=== PATIENT | male | born 1970 | race Caucasian/White ===

== ENCOUNTER 2021-12-08 20:05 | Inpatient (IN) | payer OTHER ==
[~2021-12-08] VITALS: Ht 188 cm; Wt 125.1 kg
[2021-12-08 20:51] LABS: GLUCOSE,POINT OF CARE 174 MG/DL (70-110)
[2021-12-08 21:09] LABS: BASOPHILS % (AUTO) 2.5 % (0.0-2.0); EOSINOPHILS % (AUTO) 5.7 % (1.0-6.0); HEMATOCRIT 28.1 % (41-53); HEMOGLOBIN 9.5 g/dL (13.5-17.5); LYMPHOCYTES # (AUTO) 1.2 K/uL (1.0-4.8); LYMPHOCYTES % (AUTO) 13.1 % (22.0-44.0); MEAN CORPUSCULAR HEMOGLOBIN 27.9 pg (26.0-34.0); MEAN CORPUSCULAR HGB CONC 33.7 G/dL (31.0-37.0); MEAN CORPUSCULAR VOLUME 83 fL (80-100); MONOCYTES # (AUTO) 0.7 K/uL (0.1-1.0); NEUTROPHILS # (AUTO) 6.7 K/uL (1.8-7.7); NEUTROPHILS % (AUTO) 71.7 % (40.0-70.0); PLATELET COUNT (AUTO) 389 K/uL (150-450)
[2021-12-08] MEDS ORDERED: DEXTROSE 50%-WATER 25 GM/50 ML SYRINGE IVP PRN (21:15)
[2021-12-08] MEDS ORDERED: ONDANSETRON HCL 4 MG/2 ML VIAL IVP PRN (21:15)
[2021-12-08 21:21] LABS: INR 1.1 (0.9-1.1); PROTHROMBIN TIME 11.2 SEC (9.4-11.6)
[2021-12-08 21:25] LABS: LACTIC ACID 1.9 mmol/L (0.4-2.0)
[2021-12-08 21:32] LABS: CALCIUM, TOTAL 8.9 mg/dL (8.8-10.5); CREATININE 1.46 mg/dL (0.60-1.30); POTASSIUM 4.8 mmol/L (3.5-5.1)
[2021-12-08] MEDS: GABAPENTIN 100 MG CAPSULE PO SCH (21:34)
[2021-12-08] MEDS: MORPHINE SULFATE 4 MG/ML SYRINGE IVP PRN (21:35)
[2021-12-08 21:38] LABS: ALBUMIN 2.7 g/dL (3.4-5.0); BILIRUBIN,TOTAL 0.3 mg/dL (0.1-1.0); TOTAL PROTEIN, SERUM 7.5 g/dL (6.4-8.2)
[2021-12-08] MEDS: INSULIN LISPRO 100 UNITS/ML SQ PRN (21:42)
[2021-12-08 21:43] LABS: COVID AG,FIA SOURCE NASOPHARYNGEAL
[2021-12-08 22:45] VITALS: BP 163/81
[2021-12-09] MEDS: ACETAMINOPHEN 325 MG TABLET PO PRN ×2 (00:10→21:01)
[2021-12-09] MEDS: HEPARIN SODIUM,PORCINE 5,000 UNITS/ML VIAL SQ SCH ×4 (01:23→23:24)
[2021-12-09] MEDS: MORPHINE SULFATE 4 MG/ML SYRINGE IVP PRN ×5 (01:24→21:37)
[2021-12-09] MEDS: LORazepam 2 MG TABLET PO PRN ×3 (03:27→23:28)
[2021-12-09] MEDS ORDERED: INSULIN GLARGINE,HUM.REC.ANLOG 100 UNITS/ML SQ ONE (04:45)
[2021-12-09] MEDS ORDERED: SENN8.6T20 PO (04:57)
[2021-12-09] MEDS ORDERED: ASCO500 PO (04:57)
[2021-12-09] MEDS ORDERED: [UNRECOGNIZED DRUG - CODE] IV (04:57)
[2021-12-09] MEDS ORDERED: CLON-592 PO (04:57)
[2021-12-09] MEDS ORDERED: OXYC10TA92 PO (04:57)
[2021-12-09] MEDS ORDERED: ALBU8.5H8 IH (04:57)
[2021-12-09] MEDS ORDERED: GLIP5 PO (04:57)
[2021-12-09] MEDS ORDERED: FLUO20CA36 PO (04:57)
[2021-12-09] MEDS ORDERED: METO25 PO (04:57)
[2021-12-09] MEDS ORDERED: LURA80TA2 PO (04:57)
[2021-12-09] MEDS ORDERED: METO5TAB95 PO (04:57)
[2021-12-09] MEDS ORDERED: SITA100 PO (04:57)
[2021-12-09] MEDS ORDERED: NYST15PO4 TP (04:57)
[2021-12-09] MEDS ORDERED: OXYC10TA59 PO (04:57)
[2021-12-09] MEDS ORDERED: TAMS-13 PO (04:57)
[2021-12-09] MEDS ORDERED: ONDA-104 PO (04:57)
[2021-12-09] MEDS ORDERED: TRAZ150T80 PO (04:57)
[2021-12-09] MEDS ORDERED: ZINC113C10 TP (04:57)
[2021-12-09] MEDS ORDERED: ATOR20TA86 PO (04:57)
[2021-12-09 05:02] LABS: APPEARANCE,URINE CLEAR (CLEAR); BILIRUBIN,URINE NEGATIVE (NEGATIVE); GLUCOSE, URINE (UA) 500 mg/dL (NEGATIVE); KETONES,URINE NEGATIVE (NEGATIVE); LEUKOCYTE ESTERASE ,URINE NEGATIVE (NEGATIVE); NITRATE,URINE NEGATIVE (NEGATIVE); OCCULT BLOOD,URINE NEGATIVE (NEGATIVE); PH,URINE 6.5 (5.0-8.0); PROTEIN,URINE TRACE (NEGATIVE); UROBILINOGEN,URINE 0.2 mg/dL (<=1.0)
[2021-12-09 05:23] LABS: BACTERIA,URINE None Seen /HPF (None Seen); RBC,URINE None Seen /HPF (0-2); WBC,URINE None Seen /HPF (0-5)
[2021-12-09] MEDS: METOPROLOL TARTRATE 25 MG TABLET PO SCH ×3 (05:30→21:02)
[2021-12-09 05:34] VITALS: BP 162/74
[2021-12-09 06:01] LABS: GLUCOMETER DEV NAME(LOC) 5S.2B; GLUCOSE,POINT OF CARE 150 MG/DL (70-110)
[2021-12-09] MEDS: RINGERS SOLUTION,LACTATED 1,000 ML IV SCH ×2 (06:24→17:40)
[2021-12-09] MEDS: PIPERACILLIN/TAZO 3.375 GM/D5W 50 ML IV SCH ×4 (06:24→23:24)
[2021-12-09 07:55] LABS: CALCIUM, TOTAL 8.9 mg/dL (8.8-10.5); CREATININE 1.28 mg/dL (0.60-1.30)
[2021-12-09 08:00] LABS: ALBUMIN 2.5 g/dL (3.4-5.0); BILIRUBIN,DIRECT 0.2 mg/dL (0.00-0.20); BILIRUBIN,TOTAL 0.3 mg/dL (0.1-1.0)
[2021-12-09 09:00] VITALS: BP 125/68
[2021-12-09] MEDS ORDERED: METOPROLOL TARTRATE 25 MG TABLET PO SCH (09:00)
[2021-12-09] MEDS: ZINC OXIDE 16% PASTE 57 GM TUBE TP SCH ×3 (09:00→21:12)
[2021-12-09 09:42] LABS: BASOPHILS % (AUTO) 2.6 % (0.0-2.0); EOSINOPHILS % (AUTO) 10.4 % (1.0-6.0); HEMATOCRIT 29.2 % (41-53); HEMOGLOBIN 9.5 g/dL (13.5-17.5); LYMPHOCYTES % (AUTO) 25.6 % (22.0-44.0); MEAN CORPUSCULAR HEMOGLOBIN 27.5 pg (26.0-34.0); MEAN CORPUSCULAR HGB CONC 32.7 G/dL (31.0-37.0); MEAN CORPUSCULAR VOLUME 84 fL (80-100); MONOCYTES # (AUTO) 0.5 K/uL (0.1-1.0); MONOCYTES % (AUTO) 6.5 % (2.0-9.0); NEUTROPHILS # (AUTO) 4.3 K/uL (1.8-7.7); NEUTROPHILS % (AUTO) 54.9 % (40.0-70.0); PLATELET COUNT (AUTO) 360 K/uL (150-450); RED BLOOD CELL COUNT(AUTO) 3.46 MIL/uL (4.50-5.90); RED CELL DISTRIBUTION WIDTH 16.4 % (11.5-14.5)
[2021-12-09 09:57] LABS: % IRON SATURATION 21.1 % (30-44)
[2021-12-09] MEDS: TAMSULOSIN HCL 0.4 MG CAPSULE PO SCH (10:54)
[2021-12-09] MEDS: GABAPENTIN 100 MG CAPSULE PO SCH ×3 (10:54→21:01)
[2021-12-09] MEDS: ATORVASTATIN CALCIUM 20 MG TABLET PO SCH (10:55)
[2021-12-09] MEDS: ASCORBIC ACID 500 MG TABLET PO SCH (10:56)
[2021-12-09] MEDS: 1: MAGNESIUM SULFATE 2 GM, MVI, ADULT NO.1 WITH VIT K 10 ML, THIAMINE 100 MG, FOLIC ACID IV SCH ×15 (10:58→23:24)
[2021-12-09] MEDS: NYSTATIN 15 GM POWDER BOTTLE TP SCH ×2 (12:14→21:12)
[2021-12-09] MEDS: SENNA 187 MG TABLET PO SCH ×2 (12:14→21:00)
[2021-12-09] MEDS: FLUoxetine HCL 20 MG CAPSULE PO SCH (12:15)
[2021-12-09 12:21] VITALS: BP 132/65
[2021-12-09 16:00] VITALS: BP 159/89
[2021-12-09] MEDS ORDERED: SODIUM CHLORIDE 0.9% 1,000 ML ONE (17:43)
[2021-12-09 18:41] LABS: GLUCOMETER DEV NAME(LOC) 5S.2B; GLUCOSE,POINT OF CARE 167 MG/DL (70-110)
[2021-12-09 18:41] LABS: GLUCOMETER DEV NAME(LOC) 5S.2B; GLUCOSE,POINT OF CARE 233 MG/DL (70-110)
[2021-12-09 20:35] VITALS: BP 141/83
[2021-12-09] MEDS: INSULIN LISPRO 100 UNITS/ML SQ PRN (21:10)
[2021-12-09] MEDS: INSULIN GLARGINE,HUM.REC.ANLOG 100 UNITS/ML SQ SCH (21:11)
[2021-12-09 21:21] LABS: GLUCOMETER DEV NAME(LOC) 5S.2B; GLUCOSE,POINT OF CARE 189 MG/DL (70-110)
[2021-12-09 23:46] VITALS: BP 129/66
[2021-12-10] VITALS (8 sets, daily range): BP systolic 121–158; BP diastolic 67–83
[2021-12-10] MEDS: MORPHINE SULFATE 4 MG/ML SYRINGE IVP PRN ×4 (01:30→15:54)
[2021-12-10] MEDS ORDERED: LORazepam 2 MG TABLET PO PRN ×2 (03:45→07:00)
[2021-12-10] MEDS: RINGERS SOLUTION,LACTATED 1,000 ML IV SCH ×2 (03:53→09:57)
[2021-12-10] MEDS: PIPERACILLIN/TAZO 3.375 GM/D5W 50 ML IV SCH ×4 (05:37→21:37)
[2021-12-10] MEDS: INSULIN LISPRO 100 UNITS/ML SQ PRN ×3 (06:05→21:24)
[2021-12-10 06:27] LABS: GLUCOMETER DEV NAME(LOC) 5N.3; GLUCOSE,POINT OF CARE 190 MG/DL (70-110)
[2021-12-10] MEDS: ATORVASTATIN CALCIUM 20 MG TABLET PO SCH (08:15)
[2021-12-10] MEDS: METOPROLOL TARTRATE 25 MG TABLET PO SCH ×2 (08:15→21:21)
[2021-12-10] MEDS: SENNA 187 MG TABLET PO SCH ×2 (08:15→21:00)
[2021-12-10] MEDS: FLUoxetine HCL 20 MG CAPSULE PO SCH (08:15)
[2021-12-10] MEDS: GABAPENTIN 100 MG CAPSULE PO SCH ×3 (08:15→21:21)
[2021-12-10] MEDS: ASCORBIC ACID 500 MG TABLET PO SCH (08:15)
[2021-12-10] MEDS: TAMSULOSIN HCL 0.4 MG CAPSULE PO SCH (08:15)
[2021-12-10] MEDS: LORazepam 2 MG TABLET PO SCH ×2 (08:16→15:54)
[2021-12-10] MEDS: HEPARIN SODIUM,PORCINE 5,000 UNITS/ML VIAL SQ SCH ×2 (08:20→18:48)
[2021-12-10] MEDS: ZINC OXIDE 16% PASTE 57 GM TUBE TP SCH ×3 (09:50→21:26)
[2021-12-10] MEDS: NYSTATIN 15 GM POWDER BOTTLE TP SCH ×2 (09:50→18:47)
[2021-12-10 12:56] LABS: GLUCOMETER DEV NAME(LOC) 5S.1B; GLUCOSE,POINT OF CARE 183 MG/DL (70-110)
[2021-12-10] MEDS ORDERED: ALBUTEROL SULFATE HFA 90 MCG/PUFF 8 GM INHALER IH PRN (16:30)
[2021-12-10] MEDS ORDERED: OXYC20TA58 PO (16:30)
[2021-12-10] MEDS ORDERED: CeFAZolin 1 GM/DEXTROSE 50 ML BAG IV SCH (17:00)
[2021-12-10] MEDS: LURASIDONE HCL 80 MG TABLET PO SCH (18:47)
[2021-12-10] MEDS: CeFAZolin 2 GM/DEXTROSE 50 ML IV SCH (18:47)
[2021-12-10] MEDS: GlipiZIDE 5 MG TABLET PO SCH (18:48)
[2021-12-10] MEDS: OxyCODONE HCL 10 MG IR TABLET PO PRN (18:57)
[2021-12-10] MEDS: OxyCODONE HCL 10 MG ER TABLET PO SCH (21:22)
[2021-12-10] MEDS: ClonazePAM 0.5 MG TABLET PO PRN (21:22)
[2021-12-10] MEDS: INSULIN GLARGINE,HUM.REC.ANLOG 100 UNITS/ML SQ SCH (21:24)
[2021-12-10 21:56] LABS: GLUCOMETER DEV NAME(LOC) 5S.2B; GLUCOSE,POINT OF CARE 148 MG/DL (70-110)
[2021-12-11] VITALS (7 sets, daily range): BP systolic 108–146; BP diastolic 47–90
[2021-12-11] MEDS: HEPARIN SODIUM,PORCINE 5,000 UNITS/ML VIAL SQ SCH ×3 (01:49→18:05)
[2021-12-11] MEDS: OxyCODONE HCL 10 MG IR TABLET PO PRN ×4 (01:51→20:20)
[2021-12-11] MEDS: CeFAZolin 2 GM/DEXTROSE 50 ML IV SCH ×3 (01:52→18:04)
[2021-12-11] MEDS: ACETAMINOPHEN 325 MG TABLET PO PRN (03:17)
[2021-12-11] MEDS: PIPERACILLIN/TAZO 3.375 GM/D5W 50 ML IV SCH (06:00)
[2021-12-11] MEDS: INSULIN LISPRO 100 UNITS/ML SQ PRN ×2 (06:51→22:03)
[2021-12-11 07:10] LABS: GLUCOMETER DEV NAME(LOC) 5S.1B; GLUCOSE,POINT OF CARE 181 MG/DL (70-110)
[2021-12-11] MEDS: FLUoxetine HCL 20 MG CAPSULE PO SCH (08:00)
[2021-12-11] MEDS: SitaGLIPtin PHOSPHATE 100 MG TABLET PO SCH (08:00)
[2021-12-11] MEDS: TAMSULOSIN HCL 0.4 MG CAPSULE PO SCH (08:00)
[2021-12-11] MEDS: SENNA 187 MG TABLET PO SCH ×2 (08:01→20:21)
[2021-12-11] MEDS: LURASIDONE HCL 80 MG TABLET PO SCH ×2 (08:01→18:04)
[2021-12-11] MEDS: ASCORBIC ACID 500 MG TABLET PO SCH (08:01)
[2021-12-11] MEDS: ATORVASTATIN CALCIUM 20 MG TABLET PO SCH (08:01)
[2021-12-11] MEDS: OxyCODONE HCL 10 MG ER TABLET PO SCH ×2 (08:01→22:19)
[2021-12-11] MEDS: GlipiZIDE 5 MG TABLET PO SCH ×3 (08:01→18:04)
[2021-12-11] MEDS: GABAPENTIN 100 MG CAPSULE PO SCH ×3 (08:01→20:21)
[2021-12-11] MEDS: METOPROLOL TARTRATE 25 MG TABLET PO SCH ×2 (08:01→20:21)
[2021-12-11] MEDS: ZINC OXIDE 16% PASTE 57 GM TUBE TP SCH ×3 (08:02→21:00)
[2021-12-11] MEDS: NYSTATIN 15 GM POWDER BOTTLE TP SCH ×2 (08:02→22:04)
[2021-12-11 08:49] LABS: BASOPHILS % (AUTO) 1.2 % (0.0-2.0); EOSINOPHILS % (AUTO) 9.8 % (1.0-6.0); HEMATOCRIT 29.2 % (41-53); LYMPHOCYTES # (AUTO) 1.7 K/uL (1.0-4.8); LYMPHOCYTES % (AUTO) 19.9 % (22.0-44.0); MEAN CORPUSCULAR HEMOGLOBIN 28.3 pg (26.0-34.0); MEAN CORPUSCULAR HGB CONC 34.2 G/dL (31.0-37.0); MEAN CORPUSCULAR VOLUME 83 fL (80-100); MONOCYTES # (AUTO) 0.5 K/uL (0.1-1.0); MONOCYTES % (AUTO) 5.4 % (2.0-9.0); NEUTROPHILS # (AUTO) 5.4 K/uL (1.8-7.7); NEUTROPHILS % (AUTO) 63.7 % (40.0-70.0); PLATELET COUNT (AUTO) 283 K/uL (150-450); RED BLOOD CELL COUNT(AUTO) 3.53 MIL/uL (4.50-5.90); RED CELL DISTRIBUTION WIDTH 15.4 % (11.5-14.5)
[2021-12-11 09:05] LABS: ALBUMIN 2.7 g/dL (3.4-5.0); BILIRUBIN,TOTAL 0.2 mg/dL (0.1-1.0); CREATININE 1.45 mg/dL (0.60-1.30); POTASSIUM 4.1 mmol/L (3.5-5.1); TOTAL PROTEIN, SERUM 7.5 g/dL (6.4-8.2)
[2021-12-11] MEDS: ClonazePAM 0.5 MG TABLET PO PRN ×3 (09:14→20:46)
[2021-12-11 14:56] LABS: GLUCOMETER DEV NAME(LOC) 5S.1B; GLUCOSE,POINT OF CARE 154 MG/DL (70-110)
[2021-12-11 17:51] LABS: GLUCOMETER DEV NAME(LOC) 5S.1B; GLUCOSE,POINT OF CARE 129 MG/DL (70-110)
[2021-12-11] MEDS: TraZODone HCL 150 MG TABLET PO PRN (21:31)
[2021-12-11] MEDS: INSULIN GLARGINE,HUM.REC.ANLOG 100 UNITS/ML SQ SCH (22:03)
[2021-12-12] MEDS: HEPARIN SODIUM,PORCINE 5,000 UNITS/ML VIAL SQ SCH ×4 (00:31→23:17)
[2021-12-12 01:00] VITALS: BP 140/78
[2021-12-12] MEDS: OxyCODONE HCL 10 MG IR TABLET PO PRN ×4 (02:18→23:18)
[2021-12-12] MEDS: CeFAZolin 2 GM/DEXTROSE 50 ML IV SCH ×3 (02:19→19:57)
[2021-12-12 02:21] LABS: GLUCOMETER DEV NAME(LOC) 5S.1B; GLUCOSE,POINT OF CARE 175 MG/DL (70-110)
[2021-12-12 04:40] VITALS: BP 97/62
[2021-12-12] MEDS: ClonazePAM 0.5 MG TABLET PO PRN ×3 (04:46→23:18)
[2021-12-12] MEDS: INSULIN LISPRO 100 UNITS/ML SQ PRN ×3 (06:09→18:01)
[2021-12-12 06:22] LABS: GLUCOMETER DEV NAME(LOC) 5S.2B; GLUCOSE,POINT OF CARE 184 MG/DL (70-110)
[2021-12-12] MEDS ORDERED: LORazepam 1 MG TABLET PO PRN (07:00)
[2021-12-12] MEDS: ATORVASTATIN CALCIUM 20 MG TABLET PO SCH (08:09)
[2021-12-12] MEDS: SitaGLIPtin PHOSPHATE 100 MG TABLET PO SCH (08:13)
[2021-12-12] MEDS: GlipiZIDE 5 MG TABLET PO SCH ×3 (08:13→16:36)
[2021-12-12] MEDS: TAMSULOSIN HCL 0.4 MG CAPSULE PO SCH (08:13)
[2021-12-12] MEDS: ASCORBIC ACID 500 MG TABLET PO SCH (08:14)
[2021-12-12] MEDS: SENNA 187 MG TABLET PO SCH ×2 (08:14→21:24)
[2021-12-12] MEDS: FLUoxetine HCL 20 MG CAPSULE PO SCH (08:14)
[2021-12-12] MEDS: LURASIDONE HCL 80 MG TABLET PO SCH ×2 (08:14→18:00)
[2021-12-12] MEDS: GABAPENTIN 100 MG CAPSULE PO SCH ×3 (08:14→21:22)
[2021-12-12] MEDS: METOPROLOL TARTRATE 25 MG TABLET PO SCH ×2 (08:14→21:21)
[2021-12-12] MEDS: ZINC OXIDE 16% PASTE 57 GM TUBE TP SCH ×3 (08:17→21:00)
[2021-12-12] MEDS: NYSTATIN 15 GM POWDER BOTTLE TP SCH ×2 (08:17→21:51)
[2021-12-12] MEDS: ChlordiazePOXIDE HCL 25 MG CAPSULE PO SCH ×5 (08:18→23:17)
[2021-12-12] MEDS ORDERED: LORazepam 1 MG TABLET PO SCH (09:00)
[2021-12-12] MEDS: OxyCODONE HCL 10 MG ER TABLET PO SCH ×2 (10:12→21:22)
[2021-12-12 10:28] LABS: BASOPHILS % (AUTO) 1.5 % (0.0-2.0); EOSINOPHILS % (AUTO) 9.3 % (1.0-6.0); HEMOGLOBIN 9.5 g/dL (13.5-17.5); LYMPHOCYTES % (AUTO) 23.9 % (22.0-44.0); MEAN CORPUSCULAR HEMOGLOBIN 28.3 pg (26.0-34.0); MEAN CORPUSCULAR HGB CONC 33.9 G/dL (31.0-37.0); MEAN CORPUSCULAR VOLUME 84 fL (80-100); MONOCYTES # (AUTO) 0.5 K/uL (0.1-1.0); MONOCYTES % (AUTO) 6.1 % (2.0-9.0); NEUTROPHILS # (AUTO) 4.9 K/uL (1.8-7.7); NEUTROPHILS % (AUTO) 59.2 % (40.0-70.0); PLATELET COUNT (AUTO) 262 K/uL (150-450); RED BLOOD CELL COUNT(AUTO) 3.35 MIL/uL (4.50-5.90); RED CELL DISTRIBUTION WIDTH 16.3 % (11.5-14.5)
[2021-12-12 10:53] LABS: ALBUMIN 2.6 g/dL (3.4-5.0); BILIRUBIN,TOTAL 0.1 mg/dL (0.1-1.0); CALCIUM, TOTAL 8.9 mg/dL (8.8-10.5); CREATININE 1.89 mg/dL (0.60-1.30); TOTAL PROTEIN, SERUM 7.2 g/dL (6.4-8.2)
[2021-12-12 10:54] VITALS: BP 120/80
[2021-12-12 14:29] VITALS: BP 103/65
[2021-12-12 15:06] LABS: GLUCOMETER DEV NAME(LOC) 5S.1B; GLUCOSE,POINT OF CARE 146 MG/DL (70-110)
[2021-12-12 18:04] VITALS: BP 114/68
[2021-12-12 18:12] LABS: GLUCOMETER DEV NAME(LOC) 5S.1B; GLUCOSE,POINT OF CARE 190 MG/DL (70-110)
[2021-12-12 19:30] VITALS: BP 117/65
[2021-12-12] MEDS: INSULIN GLARGINE,HUM.REC.ANLOG 100 UNITS/ML SQ SCH (21:32)
[2021-12-12 21:46] LABS: GLUCOMETER DEV NAME(LOC) 4E.2; GLUCOSE,POINT OF CARE 199 MG/DL (70-110)
[2021-12-13] MEDS: CeFAZolin 2 GM/DEXTROSE 50 ML IV SCH ×3 (01:13→18:04)
[2021-12-13] MEDS: ChlordiazePOXIDE HCL 25 MG CAPSULE PO SCH ×5 (03:58→22:10)
[2021-12-13 05:00] VITALS: BP 122/75
[2021-12-13] MEDS: INSULIN LISPRO 100 UNITS/ML SQ PRN ×4 (06:44→22:11)
[2021-12-13] MEDS ORDERED: LORazepam 1 MG TABLET PO PRN (07:00)
[2021-12-13 07:20] LABS: BASOPHILS % (AUTO) 1.1 % (0.0-2.0); EOSINOPHILS % (AUTO) 9.1 % (1.0-6.0); HEMATOCRIT 27.9 % (41-53); HEMOGLOBIN 9.4 g/dL (13.5-17.5); LYMPHOCYTES # (AUTO) 1.7 K/uL (1.0-4.8); MEAN CORPUSCULAR HEMOGLOBIN 28.3 pg (26.0-34.0); MEAN CORPUSCULAR HGB CONC 33.7 G/dL (31.0-37.0); MEAN CORPUSCULAR VOLUME 84 fL (80-100); MONOCYTES # (AUTO) 0.5 K/uL (0.1-1.0); MONOCYTES % (AUTO) 6.4 % (2.0-9.0); NEUTROPHILS # (AUTO) 4.4 K/uL (1.8-7.7); NEUTROPHILS % (AUTO) 60.4 % (40.0-70.0); PLATELET COUNT (AUTO) 234 K/uL (150-450); RED BLOOD CELL COUNT(AUTO) 3.31 MIL/uL (4.50-5.90); RED CELL DISTRIBUTION WIDTH 16.5 % (11.5-14.5)
[2021-12-13 07:50] LABS: ALBUMIN 2.7 g/dL (3.4-5.0); BILIRUBIN,TOTAL 0.1 mg/dL (0.1-1.0); CREATININE 1.95 mg/dL (0.60-1.30); POTASSIUM 3.8 mmol/L (3.5-5.1); TOTAL PROTEIN, SERUM 7.3 g/dL (6.4-8.2)
[2021-12-13] MEDS: GlipiZIDE 5 MG TABLET PO SCH ×3 (08:04→18:04)
[2021-12-13] MEDS: HEPARIN SODIUM,PORCINE 5,000 UNITS/ML VIAL SQ SCH ×2 (08:04→18:05)
[2021-12-13] MEDS: LURASIDONE HCL 80 MG TABLET PO SCH ×2 (08:04→18:04)
[2021-12-13 08:10] VITALS: BP 130/88
[2021-12-13] MEDS: FLUoxetine HCL 20 MG CAPSULE PO SCH (08:52)
[2021-12-13] MEDS: ATORVASTATIN CALCIUM 20 MG TABLET PO SCH (08:53)
[2021-12-13] MEDS: OxyCODONE HCL 10 MG ER TABLET PO SCH ×3 (08:53→22:10)
[2021-12-13] MEDS: SitaGLIPtin PHOSPHATE 100 MG TABLET PO SCH (08:53)
[2021-12-13] MEDS: GABAPENTIN 100 MG CAPSULE PO SCH ×3 (08:54→22:36)
[2021-12-13] MEDS: METOPROLOL TARTRATE 25 MG TABLET PO SCH ×2 (08:54→22:10)
[2021-12-13] MEDS: SENNA 187 MG TABLET PO SCH ×2 (08:55→22:09)
[2021-12-13] MEDS: TAMSULOSIN HCL 0.4 MG CAPSULE PO SCH (08:55)
[2021-12-13] MEDS: ASCORBIC ACID 500 MG TABLET PO SCH (08:55)
[2021-12-13] MEDS: NYSTATIN 15 GM POWDER BOTTLE TP SCH ×2 (09:06→22:12)
[2021-12-13] MEDS: ZINC OXIDE 16% PASTE 57 GM TUBE TP SCH ×3 (09:06→22:12)
[2021-12-13 11:26] LABS: GLUCOMETER DEV NAME(LOC) 6N.1; GLUCOSE,POINT OF CARE 163 MG/DL (70-110)
[2021-12-13] MEDS: OxyCODONE HCL 10 MG IR TABLET PO PRN ×2 (12:22→22:36)
[2021-12-13 15:56] VITALS: BP 120/75
[2021-12-13] MEDS ORDERED: SODIUM CHLORIDE 0.9% 250 ML IV ONE (18:11)
[2021-12-13 19:06] LABS: GLUCOMETER DEV NAME(LOC) 6N.2; GLUCOSE,POINT OF CARE 157 MG/DL (70-110)
[2021-12-13 19:40] LABS: GLUCOMETER DEV NAME(LOC) 6N.1; GLUCOSE,POINT OF CARE 173 MG/DL (70-110)
[2021-12-13 19:53] VITALS: BP 107/69
[2021-12-13] MEDS: INSULIN GLARGINE,HUM.REC.ANLOG 100 UNITS/ML SQ SCH (22:10)
[2021-12-13] MEDS: ClonazePAM 0.5 MG TABLET PO PRN (22:36)
[2021-12-13] MEDS: TraZODone HCL 150 MG TABLET PO PRN (22:38)
[2021-12-14] MEDS: ChlordiazePOXIDE HCL 25 MG CAPSULE PO SCH ×7 (00:51→23:36)
[2021-12-14] MEDS: HEPARIN SODIUM,PORCINE 5,000 UNITS/ML VIAL SQ SCH ×5 (00:51→23:40)
[2021-12-14] MEDS: CeFAZolin 2 GM/DEXTROSE 50 ML IV SCH ×3 (01:31→17:44)
[2021-12-14 01:51] LABS: GLUCOMETER DEV NAME(LOC) 4E.2; GLUCOSE,POINT OF CARE 204 MG/DL (70-110)
[2021-12-14 05:47] VITALS: BP 106/71
[2021-12-14 05:54] LABS: BASOPHILS % (AUTO) 1.1 % (0.0-2.0); EOSINOPHILS % (AUTO) 8.4 % (1.0-6.0); HEMATOCRIT 29.6 % (41-53); HEMOGLOBIN 9.8 g/dL (13.5-17.5); LYMPHOCYTES # (AUTO) 1.5 K/uL (1.0-4.8); LYMPHOCYTES % (AUTO) 22.9 % (22.0-44.0); MEAN CORPUSCULAR HEMOGLOBIN 28.2 pg (26.0-34.0); MEAN CORPUSCULAR VOLUME 85 fL (80-100); MONOCYTES # (AUTO) 0.5 K/uL (0.1-1.0); NEUTROPHILS % (AUTO) 59.6 % (40.0-70.0); PLATELET COUNT (AUTO) 227 K/uL (150-450); RED BLOOD CELL COUNT(AUTO) 3.47 MIL/uL (4.50-5.90); RED CELL DISTRIBUTION WIDTH 16.5 % (11.5-14.5)
[2021-12-14 06:09] LABS: ALBUMIN 2.8 g/dL (3.4-5.0); BILIRUBIN,TOTAL 0.1 mg/dL (0.1-1.0); CALCIUM, TOTAL 9.3 mg/dL (8.8-10.5); CREATININE 1.78 mg/dL (0.60-1.30); POTASSIUM 4.3 mmol/L (3.5-5.1); TOTAL PROTEIN, SERUM 7.6 g/dL (6.4-8.2)
[2021-12-14] MEDS: OxyCODONE HCL 10 MG IR TABLET PO PRN ×2 (07:34→16:21)
[2021-12-14] MEDS: GlipiZIDE 5 MG TABLET PO SCH ×3 (07:34→17:44)
[2021-12-14 07:44] VITALS: BP 124/69
[2021-12-14] MEDS: GABAPENTIN 100 MG CAPSULE PO SCH ×3 (09:03→20:38)
[2021-12-14] MEDS: METOPROLOL TARTRATE 25 MG TABLET PO SCH ×2 (09:03→20:38)
[2021-12-14] MEDS: ASCORBIC ACID 500 MG TABLET PO SCH (09:04)
[2021-12-14] MEDS: LURASIDONE HCL 80 MG TABLET PO SCH ×2 (09:04→17:44)
[2021-12-14] MEDS: SitaGLIPtin PHOSPHATE 100 MG TABLET PO SCH (09:04)
[2021-12-14] MEDS: ATORVASTATIN CALCIUM 20 MG TABLET PO SCH (09:04)
[2021-12-14] MEDS: SENNA 187 MG TABLET PO SCH ×2 (09:04→20:38)
[2021-12-14] MEDS: FLUoxetine HCL 20 MG CAPSULE PO SCH (09:04)
[2021-12-14] MEDS: OxyCODONE HCL 10 MG ER TABLET PO SCH ×2 (09:05→20:38)
[2021-12-14] MEDS: TAMSULOSIN HCL 0.4 MG CAPSULE PO SCH (09:05)
[2021-12-14] MEDS: NYSTATIN 15 GM POWDER BOTTLE TP SCH ×2 (09:07→20:40)
[2021-12-14] MEDS: ZINC OXIDE 16% PASTE 57 GM TUBE TP SCH ×3 (09:08→20:40)
[2021-12-14] MEDS: INSULIN LISPRO 100 UNITS/ML SQ PRN ×3 (12:01→20:40)
[2021-12-14 15:06] LABS: GLUCOMETER DEV NAME(LOC) 4E.2; GLUCOSE,POINT OF CARE 172 MG/DL (70-110)
[2021-12-14 16:15] VITALS: BP 119/52
[2021-12-14 19:36] LABS: GLUCOMETER DEV NAME(LOC) 6N.2; GLUCOSE,POINT OF CARE 260 MG/DL (70-110)
[2021-12-14 19:45] VITALS: BP 124/70
[2021-12-14] MEDS: INSULIN GLARGINE,HUM.REC.ANLOG 100 UNITS/ML SQ SCH (20:39)
[2021-12-15] MEDS: CeFAZolin 2 GM/DEXTROSE 50 ML IV SCH ×3 (01:40→17:34)
[2021-12-15] MEDS: ChlordiazePOXIDE HCL 25 MG CAPSULE PO SCH ×2 (04:00→07:57)
[2021-12-15] MEDS: OxyCODONE HCL 10 MG IR TABLET PO PRN ×2 (04:01→12:11)
[2021-12-15 04:15] VITALS: BP 121/75
[2021-12-15 05:21] LABS: BASOPHILS % (AUTO) 0.7 % (0.0-2.0); EOSINOPHILS % (AUTO) 4.6 % (1.0-6.0); HEMATOCRIT 30.2 % (41-53); HEMOGLOBIN 10.1 g/dL (13.5-17.5); LYMPHOCYTES # (AUTO) 0.9 K/uL (1.0-4.8); LYMPHOCYTES % (AUTO) 9.1 % (22.0-44.0); MEAN CORPUSCULAR HEMOGLOBIN 28.3 pg (26.0-34.0); MEAN CORPUSCULAR HGB CONC 33.3 G/dL (31.0-37.0); MEAN CORPUSCULAR VOLUME 85 fL (80-100); MONOCYTES # (AUTO) 0.6 K/uL (0.1-1.0); MONOCYTES % (AUTO) 6.2 % (2.0-9.0); NEUTROPHILS % (AUTO) 79.4 % (40.0-70.0); PLATELET COUNT (AUTO) 239 K/uL (150-450); RED BLOOD CELL COUNT(AUTO) 3.55 MIL/uL (4.50-5.90); RED CELL DISTRIBUTION WIDTH 16.3 % (11.5-14.5)
[2021-12-15 05:36] LABS: GLUCOMETER DEV NAME(LOC) 6N.2; GLUCOSE,POINT OF CARE 263 MG/DL (70-110)
[2021-12-15 05:37] LABS: ALBUMIN 2.7 g/dL (3.4-5.0); BILIRUBIN,TOTAL 0.1 mg/dL (0.1-1.0); CALCIUM, TOTAL 9.1 mg/dL (8.8-10.5); CREATININE 1.91 mg/dL (0.60-1.30); POTASSIUM 4.1 mmol/L (3.5-5.1); TOTAL PROTEIN, SERUM 7.5 g/dL (6.4-8.2)
[2021-12-15] MEDS: INSULIN LISPRO 100 UNITS/ML SQ PRN ×4 (06:18→20:44)
[2021-12-15 06:27] LABS: GLUCOMETER DEV NAME(LOC) 6N.2; GLUCOSE,POINT OF CARE 303 MG/DL (70-110)
[2021-12-15 07:26] VITALS: BP 118/70
[2021-12-15] MEDS: GlipiZIDE 5 MG TABLET PO SCH ×3 (07:57→17:34)
[2021-12-15] MEDS: LURASIDONE HCL 80 MG TABLET PO SCH ×2 (07:57→17:34)
[2021-12-15] MEDS: HEPARIN SODIUM,PORCINE 5,000 UNITS/ML VIAL SQ SCH ×2 (07:58→16:16)
[2021-12-15] MEDS: SENNA 187 MG TABLET PO SCH ×2 (09:00→21:06)
[2021-12-15] MEDS: TAMSULOSIN HCL 0.4 MG CAPSULE PO SCH (09:00)
[2021-12-15] MEDS: OxyCODONE HCL 10 MG ER TABLET PO SCH ×2 (09:00→21:06)
[2021-12-15] MEDS: ATORVASTATIN CALCIUM 20 MG TABLET PO SCH (09:00)
[2021-12-15] MEDS: ASCORBIC ACID 500 MG TABLET PO SCH (09:00)
[2021-12-15] MEDS: METOPROLOL TARTRATE 25 MG TABLET PO SCH ×2 (09:00→21:05)
[2021-12-15] MEDS: FLUoxetine HCL 20 MG CAPSULE PO SCH (09:00)
[2021-12-15] MEDS: GABAPENTIN 100 MG CAPSULE PO SCH ×3 (09:00→21:05)
[2021-12-15] MEDS: NYSTATIN 15 GM POWDER BOTTLE TP SCH ×2 (09:01→21:15)
[2021-12-15] MEDS: SitaGLIPtin PHOSPHATE 100 MG TABLET PO SCH (09:01)
[2021-12-15] MEDS: ZINC OXIDE 16% PASTE 57 GM TUBE TP SCH ×3 (09:01→21:15)
[2021-12-15 14:51] LABS: GLUCOMETER DEV NAME(LOC) 4E.2; GLUCOSE,POINT OF CARE 237 MG/DL (70-110)
[2021-12-15 14:51] LABS: GLUCOMETER DEV NAME(LOC) 6N.2; GLUCOSE,POINT OF CARE 222 MG/DL (70-110)
[2021-12-15 15:01] VITALS: BP 114/72
[2021-12-15 20:00] VITALS: BP 123/81
[2021-12-15 20:01] LABS: GLUCOMETER DEV NAME(LOC) 6N.2; GLUCOSE,POINT OF CARE 206 MG/DL (70-110)
[2021-12-15] MEDS: ChlordiazePOXIDE HCL 10 MG CAPSULE PO SCH (21:05)
[2021-12-15] MEDS: INSULIN GLARGINE,HUM.REC.ANLOG 100 UNITS/ML SQ SCH (21:11)
[2021-12-15 22:16] LABS: GLUCOMETER DEV NAME(LOC) 6N.1; GLUCOSE,POINT OF CARE 221 MG/DL (70-110)
[2021-12-16] MEDS: HEPARIN SODIUM,PORCINE 5,000 UNITS/ML VIAL SQ SCH ×4 (00:23→16:13)
[2021-12-16 00:25] VITALS: BP 114/68
[2021-12-16] MEDS: CeFAZolin 2 GM/DEXTROSE 50 ML IV SCH ×3 (02:49→17:35)
[2021-12-16 05:46] VITALS: BP 128/75
[2021-12-16] MEDS: INSULIN LISPRO 100 UNITS/ML SQ PRN ×4 (06:18→20:35)
[2021-12-16 06:53] LABS: BASOPHILS % (AUTO) 1.3 % (0.0-2.0); EOSINOPHILS % (AUTO) 8.9 % (1.0-6.0); HEMATOCRIT 28.7 % (41-53); HEMOGLOBIN 9.9 g/dL (13.5-17.5); LYMPHOCYTES # (AUTO) 1.3 K/uL (1.0-4.8); LYMPHOCYTES % (AUTO) 24.7 % (22.0-44.0); MEAN CORPUSCULAR HEMOGLOBIN 29.4 pg (26.0-34.0); MEAN CORPUSCULAR HGB CONC 34.4 G/dL (31.0-37.0); MEAN CORPUSCULAR VOLUME 86 fL (80-100); MONOCYTES # (AUTO) 0.5 K/uL (0.1-1.0); MONOCYTES % (AUTO) 9.7 % (2.0-9.0); NEUTROPHILS # (AUTO) 2.9 K/uL (1.8-7.7); NEUTROPHILS % (AUTO) 55.4 % (40.0-70.0); PLATELET COUNT (AUTO) 211 K/uL (150-450); RED BLOOD CELL COUNT(AUTO) 3.35 MIL/uL (4.50-5.90); RED CELL DISTRIBUTION WIDTH 16.3 % (11.5-14.5)
[2021-12-16 07:07] LABS: ALBUMIN 2.6 g/dL (3.4-5.0); BILIRUBIN,TOTAL 0.1 mg/dL (0.1-1.0); CALCIUM, TOTAL 9.2 mg/dL (8.8-10.5); CREATININE 1.56 mg/dL (0.60-1.30); POTASSIUM 4.2 mmol/L (3.5-5.1); TOTAL PROTEIN, SERUM 7.4 g/dL (6.4-8.2)
[2021-12-16 07:25] LABS: GLUCOMETER DEV NAME(LOC) 6N.1; GLUCOSE,POINT OF CARE 246 MG/DL (70-110)
[2021-12-16] MEDS: GlipiZIDE 5 MG TABLET PO SCH ×3 (07:31→17:35)
[2021-12-16] MEDS: LURASIDONE HCL 80 MG TABLET PO SCH ×2 (07:31→17:35)
[2021-12-16] MEDS: OxyCODONE HCL 10 MG IR TABLET PO PRN ×2 (07:31→16:24)
[2021-12-16 08:00] VITALS: BP 116/68
[2021-12-16] MEDS: TAMSULOSIN HCL 0.4 MG CAPSULE PO SCH (08:58)
[2021-12-16] MEDS: SitaGLIPtin PHOSPHATE 100 MG TABLET PO SCH (08:58)
[2021-12-16] MEDS: GABAPENTIN 100 MG CAPSULE PO SCH ×3 (08:58→20:48)
[2021-12-16] MEDS: SENNA 187 MG TABLET PO SCH ×2 (08:58→20:40)
[2021-12-16] MEDS: FLUoxetine HCL 20 MG CAPSULE PO SCH (08:58)
[2021-12-16] MEDS: ATORVASTATIN CALCIUM 20 MG TABLET PO SCH (08:59)
[2021-12-16] MEDS: OxyCODONE HCL 10 MG ER TABLET PO SCH ×2 (08:59→20:40)
[2021-12-16] MEDS: METOPROLOL TARTRATE 25 MG TABLET PO SCH ×2 (08:59→20:48)
[2021-12-16] MEDS: ChlordiazePOXIDE HCL 10 MG CAPSULE PO SCH ×2 (08:59→20:40)
[2021-12-16] MEDS: ASCORBIC ACID 500 MG TABLET PO SCH (08:59)
[2021-12-16] MEDS: NYSTATIN 15 GM POWDER BOTTLE TP SCH ×2 (09:00→20:41)
[2021-12-16] MEDS: ZINC OXIDE 16% PASTE 57 GM TUBE TP SCH ×3 (09:01→20:41)
[2021-12-16 11:51] LABS: GLUCOMETER DEV NAME(LOC) 6N.1; GLUCOSE,POINT OF CARE 295 MG/DL (70-110)
[2021-12-16 17:13] VITALS: BP 96/54
[2021-12-16 17:22] LABS: GLUCOMETER DEV NAME(LOC) 6N.1; GLUCOSE,POINT OF CARE 233 MG/DL (70-110)
[2021-12-16 20:09] VITALS: BP 116/65
[2021-12-16] MEDS: INSULIN GLARGINE,HUM.REC.ANLOG 100 UNITS/ML SQ SCH (20:33)
[2021-12-16 21:06] LABS: GLUCOMETER DEV NAME(LOC) 6N.1; GLUCOSE,POINT OF CARE 256 MG/DL (70-110)
[2021-12-17] MEDS: CeFAZolin 2 GM/DEXTROSE 50 ML IV SCH ×3 (02:42→17:37)
[2021-12-17] MEDS: OxyCODONE HCL 10 MG IR TABLET PO PRN (02:53)
[2021-12-17 03:16] LABS: GLUCOMETER DEV NAME(LOC) 4E.2; GLUCOSE,POINT OF CARE 174 MG/DL (70-110)
[2021-12-17 05:02] VITALS: BP 127/75
[2021-12-17 05:55] LABS: BASOPHILS % (AUTO) 1.1 % (0.0-2.0); EOSINOPHILS % (AUTO) 7.3 % (1.0-6.0); HEMATOCRIT 28.8 % (41-53); HEMOGLOBIN 9.7 g/dL (13.5-17.5); LYMPHOCYTES # (AUTO) 1.3 K/uL (1.0-4.8); LYMPHOCYTES % (AUTO) 20.5 % (22.0-44.0); MEAN CORPUSCULAR HEMOGLOBIN 28.8 pg (26.0-34.0); MEAN CORPUSCULAR HGB CONC 33.5 G/dL (31.0-37.0); MEAN CORPUSCULAR VOLUME 86 fL (80-100); MONOCYTES # (AUTO) 0.6 K/uL (0.1-1.0); MONOCYTES % (AUTO) 10.3 % (2.0-9.0); NEUTROPHILS # (AUTO) 3.7 K/uL (1.8-7.7); NEUTROPHILS % (AUTO) 60.8 % (40.0-70.0); PLATELET COUNT (AUTO) 232 K/uL (150-450); RED BLOOD CELL COUNT(AUTO) 3.35 MIL/uL (4.50-5.90); RED CELL DISTRIBUTION WIDTH 15.9 % (11.5-14.5)
[2021-12-17 06:10] LABS: ALBUMIN 2.7 g/dL (3.4-5.0); BILIRUBIN,TOTAL 0.2 mg/dL (0.1-1.0); CALCIUM, TOTAL 9.6 mg/dL (8.8-10.5); CREATININE 1.65 mg/dL (0.60-1.30); POTASSIUM 4.3 mmol/L (3.5-5.1); TOTAL PROTEIN, SERUM 7.5 g/dL (6.4-8.2)
[2021-12-17] MEDS: INSULIN LISPRO 100 UNITS/ML SQ PRN ×4 (06:36→20:28)
[2021-12-17] MEDS: GlipiZIDE 5 MG TABLET PO SCH ×3 (07:59→17:38)
[2021-12-17] MEDS: LURASIDONE HCL 80 MG TABLET PO SCH ×2 (07:59→17:38)
[2021-12-17] MEDS: HEPARIN SODIUM,PORCINE 5,000 UNITS/ML VIAL SQ SCH ×3 (07:59→16:51)
[2021-12-17 08:00] VITALS: BP 124/64
[2021-12-17] MEDS ORDERED: SODIUM CHLORIDE 0.9% 250 ML IV ONE (08:19)
[2021-12-17] MEDS: METOPROLOL TARTRATE 25 MG TABLET PO SCH ×2 (09:05→20:37)
[2021-12-17] MEDS: TAMSULOSIN HCL 0.4 MG CAPSULE PO SCH (09:05)
[2021-12-17] MEDS: ChlordiazePOXIDE HCL 10 MG CAPSULE PO SCH (09:05)
[2021-12-17] MEDS: GABAPENTIN 100 MG CAPSULE PO SCH ×3 (09:05→20:37)
[2021-12-17] MEDS: SENNA 187 MG TABLET PO SCH ×2 (09:05→20:37)
[2021-12-17] MEDS: ASCORBIC ACID 500 MG TABLET PO SCH (09:05)
[2021-12-17] MEDS: OxyCODONE HCL 10 MG ER TABLET PO SCH ×2 (09:06→20:37)
[2021-12-17] MEDS: ATORVASTATIN CALCIUM 20 MG TABLET PO SCH (09:06)
[2021-12-17] MEDS: FLUoxetine HCL 20 MG CAPSULE PO SCH (09:06)
[2021-12-17] MEDS: SitaGLIPtin PHOSPHATE 100 MG TABLET PO SCH (09:06)
[2021-12-17] MEDS: NYSTATIN 15 GM POWDER BOTTLE TP SCH ×2 (09:07→16:51)
[2021-12-17] MEDS: ZINC OXIDE 16% PASTE 57 GM TUBE TP SCH ×3 (09:07→20:39)
[2021-12-17 16:07] VITALS: BP_SYST 106; BP_SYST 149; BP_DIAS 73; BP_DIAS 94
[2021-12-17 17:36] LABS: GLUCOMETER DEV NAME(LOC) 4E.2; GLUCOSE,POINT OF CARE 169 MG/DL (70-110)
[2021-12-17 20:01] LABS: GLUCOMETER DEV NAME(LOC) 6N.2; GLUCOSE,POINT OF CARE 254 MG/DL (70-110)
[2021-12-17 20:09] VITALS: BP 127/74
[2021-12-17 20:16] LABS: GLUCOMETER DEV NAME(LOC) 6N.1; GLUCOSE,POINT OF CARE 238 MG/DL (70-110)
[2021-12-17] MEDS: INSULIN GLARGINE,HUM.REC.ANLOG 100 UNITS/ML SQ SCH (20:29)
[2021-12-18] MEDS: CeFAZolin 2 GM/DEXTROSE 50 ML IV SCH ×3 (02:08→17:59)
[2021-12-18 04:16] VITALS: BP 123/71
[2021-12-18] MEDS: GlipiZIDE 5 MG TABLET PO SCH ×3 (06:09→17:58)
[2021-12-18] MEDS: INSULIN LISPRO 100 UNITS/ML SQ PRN ×4 (06:10→20:19)
[2021-12-18 06:12] LABS: GLUCOMETER DEV NAME(LOC) 6N.2; GLUCOSE,POINT OF CARE 171 MG/DL (70-110)
[2021-12-18 08:14] VITALS: BP 137/87
[2021-12-18] MEDS: HEPARIN SODIUM,PORCINE 5,000 UNITS/ML VIAL SQ SCH ×4 (09:00→23:17)
[2021-12-18] MEDS: SENNA 187 MG TABLET PO SCH ×2 (09:00→19:20)
[2021-12-18] MEDS: METOPROLOL TARTRATE 25 MG TABLET PO SCH ×2 (09:07→20:20)
[2021-12-18] MEDS: ASCORBIC ACID 500 MG TABLET PO SCH (09:08)
[2021-12-18] MEDS: OxyCODONE HCL 10 MG ER TABLET PO SCH ×2 (09:08→20:16)
[2021-12-18] MEDS: SitaGLIPtin PHOSPHATE 100 MG TABLET PO SCH (09:09)
[2021-12-18] MEDS: LURASIDONE HCL 80 MG TABLET PO SCH ×2 (09:09→17:58)
[2021-12-18] MEDS: TAMSULOSIN HCL 0.4 MG CAPSULE PO SCH (09:09)
[2021-12-18] MEDS: ATORVASTATIN CALCIUM 20 MG TABLET PO SCH (09:09)
[2021-12-18] MEDS: GABAPENTIN 100 MG CAPSULE PO SCH ×3 (09:09→20:15)
[2021-12-18] MEDS: FLUoxetine HCL 20 MG CAPSULE PO SCH (09:09)
[2021-12-18] MEDS: ZINC OXIDE 16% PASTE 57 GM TUBE TP SCH ×3 (09:12→20:16)
[2021-12-18] MEDS: NYSTATIN 15 GM POWDER BOTTLE TP SCH ×2 (09:12→20:16)
[2021-12-18 11:31] VITALS: BP 146/85
[2021-12-18] MEDS: OxyCODONE HCL 10 MG IR TABLET PO PRN (11:58)
[2021-12-18 16:26] VITALS: BP 130/78
[2021-12-18 17:56] LABS: GLUCOMETER DEV NAME(LOC) 6N.1; GLUCOSE,POINT OF CARE 160 MG/DL (70-110)
[2021-12-18 17:56] LABS: GLUCOMETER DEV NAME(LOC) 4E.2; GLUCOSE,POINT OF CARE 192 MG/DL (70-110)
[2021-12-18 19:30] VITALS: BP 125/73
[2021-12-18] MEDS: INSULIN GLARGINE,HUM.REC.ANLOG 100 UNITS/ML SQ SCH (20:19)
[2021-12-18 20:21] LABS: GLUCOMETER DEV NAME(LOC) 4E.2; GLUCOSE,POINT OF CARE 152 MG/DL (70-110)
[2021-12-19] MEDS: CeFAZolin 2 GM/DEXTROSE 50 ML IV SCH ×2 (01:01→10:16)
[2021-12-19] MEDS: OxyCODONE HCL 10 MG IR TABLET PO PRN ×2 (04:04→10:15)
[2021-12-19 04:07] VITALS: BP 133/86
[2021-12-19] MEDS: INSULIN LISPRO 100 UNITS/ML SQ PRN ×2 (05:39→12:04)
[2021-12-19 05:52] LABS: GLUCOMETER DEV NAME(LOC) 6N.2; GLUCOSE,POINT OF CARE 166 MG/DL (70-110)
[2021-12-19 07:28] VITALS: BP 139/83
[2021-12-19] MEDS: GlipiZIDE 5 MG TABLET PO SCH ×2 (07:49→12:02)
[2021-12-19] MEDS: LURASIDONE HCL 80 MG TABLET PO SCH (07:50)
[2021-12-19] MEDS: HEPARIN SODIUM,PORCINE 5,000 UNITS/ML VIAL SQ SCH (07:50)
[2021-12-19] MEDS: SitaGLIPtin PHOSPHATE 100 MG TABLET PO SCH (08:48)
[2021-12-19] MEDS: GABAPENTIN 100 MG CAPSULE PO SCH (08:49)
[2021-12-19] MEDS: ATORVASTATIN CALCIUM 20 MG TABLET PO SCH (08:49)
[2021-12-19] MEDS: ASCORBIC ACID 500 MG TABLET PO SCH (08:49)
[2021-12-19] MEDS: FLUoxetine HCL 20 MG CAPSULE PO SCH (08:49)
[2021-12-19] MEDS: OxyCODONE HCL 10 MG ER TABLET PO SCH (08:50)
[2021-12-19] MEDS: METOPROLOL TARTRATE 25 MG TABLET PO SCH (08:50)
[2021-12-19] MEDS: TAMSULOSIN HCL 0.4 MG CAPSULE PO SCH (08:50)
[2021-12-19] MEDS: ZINC OXIDE 16% PASTE 57 GM TUBE TP SCH (08:53)
[2021-12-19] MEDS: NYSTATIN 15 GM POWDER BOTTLE TP SCH (08:54)
[2021-12-19] MEDS: SENNA 187 MG TABLET PO SCH (08:55)
[2021-12-19] MEDS: ClonazePAM 0.5 MG TABLET PO PRN (12:08)
[2021-12-19 14:46] LABS: GLUCOMETER DEV NAME(LOC) 6N.2; GLUCOSE,POINT OF CARE 175 MG/DL (70-110)
== END 2021-12-19 14:52 | DRG 637 ==
LOC: EMS 20:07 → 5N 23:56 → 6N 12-12 18:30
PROVIDERS: ADMIT Internal Medicine; ATTEND Internal Medicine
DX: E11.10 Type 2 diabetes mellitus with ketoacidosis without coma (principal); E43 Unspecified severe protein-calorie malnutrition; E11.52 Type 2 diabetes mellitus with diabetic peripheral angiopathy with gangrene; F10.139 Alcohol abuse with withdrawal, unspecified; L03.90 Cellulitis, unspecified; E87.1 Hypo-osmolality and hyponatremia; E11.65 Type 2 diabetes mellitus with hyperglycemia; I10 Essential (primary) hypertension; D64.9 Anemia, unspecified; Z20.822 Contact with and (suspected) exposure to COVID-19; G89.29 Other chronic pain; F20.9 Schizophrenia, unspecified; E11.40 Type 2 diabetes mellitus with diabetic neuropathy, unspecified; L24.9 Irritant contact dermatitis, unspecified cause; E66.01 Morbid (severe) obesity due to excess calories; Z68.35 Body mass index [BMI] 35.0-35.9, adult; Z89.512 Acquired absence of left leg below knee; Z89.511 Acquired absence of right leg below knee; Z93.3 Colostomy status; Z99.3 Dependence on wheelchair; Z91.19 Patient's noncompliance with other medical treatment and regimen; Z79.4 Long term (current) use of insulin; Z91.041 Radiographic dye allergy status; Z88.8 Allergy status to other drugs, medicaments and biological substances
CPT/HCPCS: 71045; 74176; 76705; 80048; 80053; 80076; 81001; 82271; 82962; 83540; 83550; 83605; 83690; 83735; 83880; 84484; 85025; 85610; 85730; 87040; 93005; 97116; 97162; 97167; 97530; 97535; 99285; J0690; J1644; J1815; J2270; J2543; J3411; J3475; J3490; J7030; J7050; J7120; 36415-L1; 36415-TC; U0003

== ENCOUNTER 2022-06-03 18:25 | Emergency (ER) | payer OTHER ==
[~2022-06-03] VITALS: Ht 167.6 cm; Wt 125.0 kg
[~2022-06-03 18:25] MED LIST: ALBU8.5H8 IH; ASCO500 PO; ATOR20TA86 PO; CLON-592 PO; FLUO20CA36 PO; GLIP5TAB12 PO; LURA80TA2 PO; METO25 PO; METO5TAB95 PO; NYST15PO4 TP; ONDA-104 PO; OXYC10TA92 PO; OXYC20TA58 PO; SENN8.6T20 PO; SITA100 PO; TAMS-13 PO; TRAZ150T80 PO; ZINC113C10 TP; [UNRECOGNIZED DRUG - CODE] IV
[2022-06-03] MEDS ORDERED: LORazepam 1 MG TABLET PO ONE (20:00)
[2022-06-03] MEDS ORDERED: LURASIDONE HCL 40 MG TABLET PO ONE (20:00)
[2022-06-03] MEDS ORDERED: PERMETHRIN 5% 60 GM CREAM TP ONE (20:00)
[2022-06-03] MEDS ORDERED: HYDROCODONE/ACETAMINOPHEN 5-325 MG TABLET PO ONE (20:15)
[2022-06-03] MEDS ORDERED: CEPH-558 PO (21:33)
[2022-06-03 23:30] VITALS: BP 180/103
== END 2022-06-03 23:30 | disposition home or self-care (01) ==
LOC: EMS 18:27
DX: F20.9 Schizophrenia, unspecified (principal); I10 Essential (primary) hypertension; E11.9 Type 2 diabetes mellitus without complications; F31.9 Bipolar disorder, unspecified; Z88.8 Allergy status to other drugs, medicaments and biological substances; Z79.899 Other long term (current) drug therapy
CPT/HCPCS: 82962; 99285

== ENCOUNTER 2023-07-01 22:09 | Inpatient (IN) | payer OTHER ==
[~2023-07-01] VITALS: Ht 121.9 cm; Wt 106.1 kg
[~2023-07-01 22:09] MED LIST changes: +ATOR20TA PO; -ATOR20TA86 PO; +CEPH-558 PO; -TAMS-13 PO; +TAMS0.4C34 PO
[2023-07-02] MEDS ORDERED: HALOPERIDOL LACTATE 5 MG/ML VIAL IM ONE
[2023-07-02] MEDS ORDERED: DiphenhydrAMINE HCL 50 MG/ML VIAL IM ONE
[2023-07-02 01:05] LABS: EOSINOPHILS % (AUTO) 5.4 % (1.0-6.0); HEMATOCRIT 38.8 % (41-53); HEMOGLOBIN 12.8 g/dL (13.5-17.5); LYMPHOCYTES # (AUTO) 2.3 K/uL (1.0-4.8); LYMPHOCYTES % (AUTO) 25.2 % (22.0-44.0); MEAN CORPUSCULAR HEMOGLOBIN 28.9 pg (26.0-34.0); MEAN CORPUSCULAR HGB CONC 33.1 G/dL (31.0-37.0); MEAN CORPUSCULAR VOLUME 87 fL (80-100); MONOCYTES # (AUTO) 0.5 K/uL (0.1-1.0); MONOCYTES % (AUTO) 5.7 % (2.0-9.0); NEUTROPHILS # (AUTO) 5.7 K/uL (1.8-7.7); NEUTROPHILS % (AUTO) 62.7 % (40.0-70.0); PLATELET COUNT (AUTO) 266 K/uL (150-450); RED BLOOD CELL COUNT(AUTO) 4.44 MIL/uL (4.50-5.90); RED CELL DISTRIBUTION WIDTH 14.2 % (11.5-14.5)
[2023-07-02 01:14] LABS: COVID AG,FIA SOURCE NASOPHARYNGEAL
[2023-07-02 01:26] LABS: POTASSIUM 3.7 mmol/L (3.5-5.1)
[2023-07-02 01:27] LABS: ALBUMIN 2.7 g/dL (3.4-5.0); BILIRUBIN,TOTAL 0.1 mg/dL (0.1-1.0); CALCIUM, TOTAL 8.9 mg/dL (8.8-10.5); CREATININE 1.35 mg/dL (0.60-1.30); TOTAL PROTEIN, SERUM 6.6 g/dL (6.4-8.2)
[2023-07-02 01:35] LABS: SARS-COV2 (COVID) ANTIGEN,FIA Negative (Negative)
[2023-07-02] MEDS ORDERED: HALOPERIDOL 5 MG TABLET PO PRN (02:30)
[2023-07-02] MEDS ORDERED: LORazepam 1 MG TABLET PO PRN (02:30)
[2023-07-02] MEDS ORDERED: ZOLPIDEM TARTRATE 10 MG TABLET PO PRN (02:30)
[2023-07-02 04:47] LABS: APPEARANCE,URINE CLEAR (CLEAR); BILIRUBIN,URINE NEGATIVE (NEGATIVE); COLOR,URINE LIGHT YELLOW (YELLOW); GLUCOSE, URINE (UA) >=1000 mg/dL (NEGATIVE); KETONES,URINE NEGATIVE (NEGATIVE); LEUKOCYTE ESTERASE ,URINE NEGATIVE (NEGATIVE); NITRATE,URINE NEGATIVE (NEGATIVE); OCCULT BLOOD,URINE NEGATIVE (NEGATIVE); PH,URINE 5.5 (5.0-8.0); PROTEIN,URINE 100-200,SEE CONFIRM mg/dL (NEGATIVE); SPECIFIC GRAVITIY, URINE 1.021 (1.003-1.030); UROBILINOGEN,URINE <=1.0 mg/dL (<=1.0)
[2023-07-02 04:50] LABS: PH,URINE DRUG SCREEN 5.5 (5.0-8.0)
[2023-07-02 04:53] LABS: ALCOHOL, URINE DRUG SCREEN POSITIVE (NEGATIVE); AMPHET/METH SCREEN,URINE NEGATIVE (NEGATIVE); BARBITURATE SCREEN, URINE NEGATIVE (NEGATIVE); BENZODIAZEPINES SCREEN,URINE POSITIVE (NEGATIVE); CANNABINOID SCREEN,URINE POSITIVE (NEGATIVE); COCAINE SCREEN,URINE NEGATIVE (NEGATIVE); METHADONE SCREEN, URINE NEGATIVE (NEGATIVE); OPIATE SCREEN,URINE NEGATIVE (NEGATIVE); PHENCYCLIDINE SCREEN,URINE NEGATIVE (NEGATIVE)
[2023-07-02 05:10] LABS: BACTERIA,URINE None Seen /HPF (None Seen); RBC,URINE None Seen /HPF (0-2); SQUAMOUS EPITHELIAL CELL,UR Few /LPF (None Seen); WBC,URINE None Seen /HPF (0-5)
[2023-07-02 05:19] LABS: SULFOSALICYLIC ACID,URINE 1+ (Negative)
[2023-07-02] MEDS ORDERED: LORazepam 2 MG/ML VIAL IM ONE ×2 (16:45)
[2023-07-02] MEDS ORDERED: IBUPROFEN 800 MG TABLET PO ONE (16:45)
[2023-07-02] MEDS ORDERED: TraMADol HCL 50 MG TABLET PO ONE (16:45)
[2023-07-02] MEDS ORDERED: DULA0.75 SQ (18:00)
[2023-07-02] MEDS ORDERED: DULO-114 PO (18:00)
[2023-07-02] MEDS ORDERED: GABA-1181 PO (18:00)
[2023-07-02] MEDS ORDERED: GABA800T9 PO (18:00)
[2023-07-03] MEDS ORDERED: LORazepam 2 MG/ML VIAL IM ONE ×2 (15:15)
[2023-07-03] MEDS ORDERED: NICOTINE 14 MG/24 HOUR PATCH TD ONE (20:00)
[2023-07-03] MEDS ORDERED: ALBU18HF12 IH (20:05)
[2023-07-03] MEDS ORDERED: TRAZ-283 PO (23:57)
[2023-07-03] MEDS ORDERED: GLIP5TAB11 PO (23:57)
[2023-07-03] MEDS ORDERED: GABA-1181 PO (23:57)
[2023-07-03] MEDS ORDERED: ATOR20TA65 PO (23:57)
[2023-07-04 12:34] VITALS: RESP 20
[2023-07-04] MEDS ORDERED: LURASIDONE HCL 80 MG TABLET PO ONE (17:30)
[2023-07-04] MEDS ORDERED: DULoxetine HCL 60 MG CAPSULE PO ONE (18:00)
[2023-07-04 20:00] VITALS: BP 142/88; PULSE 75; RESP 18; TEMP 97
== END 2023-07-04 21:15 | disposition left against medical advice (07) | DRG 885 ==
LOC: EMS 22:09 → 3EI 07-04 08:49
PROVIDERS: ADMIT Psychiatry & Neurology Psychiatry; ATTEND Psychiatry & Neurology Psychiatry
DX: F20.9 Schizophrenia, unspecified (principal); Z93.3 Colostomy status; E11.65 Type 2 diabetes mellitus with hyperglycemia; R45.851 Suicidal ideations; Z20.822 Contact with and (suspected) exposure to COVID-19; Z53.29 Procedure and treatment not carried out because of patient's decision for other reasons; I10 Essential (primary) hypertension; Z89.512 Acquired absence of left leg below knee; Z89.511 Acquired absence of right leg below knee; Z95.5 Presence of coronary angioplasty implant and graft; Z88.8 Allergy status to other drugs, medicaments and biological substances; Z91.041 Radiographic dye allergy status; Z79.899 Other long term (current) drug therapy
CPT/HCPCS: 80053; 80307; 81001; 81002; 85025; 99285; G0480; J1200; J1630; J2060

== ENCOUNTER 2023-09-19 16:59 | Emergency (ER) | payer OTHER ==
[~2023-09-19] VITALS: Ht 139.7 cm; Wt 146.0 kg
[~2023-09-19 16:59] MED LIST changes: -ALBU8.5H8 IH; -ASCO500 PO; -ATOR20TA PO; +BUSP15 PO; -CEPH-558 PO; -CLON-592 PO; +DULO-113 PO; -FLUO20CA36 PO; -GLIP5TAB12 PO; -LURA80TA2 PO; +LURA80TA4 PO; -METO25 PO; -METO5TAB95 PO; -NYST15PO4 TP; -ONDA-104 PO; -OXYC10TA92 PO; -OXYC20TA58 PO; -SENN8.6T20 PO; -SITA100 PO; -TAMS0.4C34 PO; -TRAZ150T80 PO; -ZINC113C10 TP; -[UNRECOGNIZED DRUG - CODE] IV
[2023-09-19 17:26] VITALS: TEMP 98.7
[2023-09-19] MEDS ORDERED: DULA0.75 SQ (17:59)
[2023-09-19 18:05] LABS: BASOPHILS % (AUTO) 2.1 % (0.0-2.0); EOSINOPHILS % (AUTO) 4.5 % (1.0-6.0); HEMATOCRIT 39.5 % (41-53); HEMOGLOBIN 13.5 g/dL (13.5-17.5); LYMPHOCYTES # (AUTO) 1.7 K/uL (1.0-4.8); MEAN CORPUSCULAR HEMOGLOBIN 30.2 pg (26.0-34.0); MEAN CORPUSCULAR HGB CONC 34.1 G/dL (31.0-37.0); MEAN CORPUSCULAR VOLUME 89 fL (80-100); MONOCYTES # (AUTO) 0.3 K/uL (0.1-1.0); MONOCYTES % (AUTO) 4.6 % (2.0-9.0); NEUTROPHILS # (AUTO) 3.9 K/uL (1.8-7.7); NEUTROPHILS % (AUTO) 61.8 % (40.0-70.0); PLATELET COUNT (AUTO) 275 K/uL (150-450); RED BLOOD CELL COUNT(AUTO) 4.46 MIL/uL (4.50-5.90); WHITE BLOOD COUNT (AUTO) 6.4 K/uL (4.5-11.0)
[2023-09-19] MEDS ORDERED: LORazepam 1 MG TABLET PO ONE (18:15)
[2023-09-19 18:18] LABS: CALCIUM, TOTAL 8.8 mg/dL (8.8-10.5); CREATININE 1.57 mg/dL (0.60-1.30); POTASSIUM 4.5 mmol/L (3.5-5.1)
[2023-09-19 18:28] LABS: ALBUMIN 2.7 g/dL (3.4-5.0); BILIRUBIN,TOTAL 0.2 mg/dL (0.1-1.0); TOTAL PROTEIN, SERUM 7.4 g/dL (6.4-8.2)
[2023-09-19 18:51] LABS: GLUCOMETER DEV NAME(LOC) ER.6; GLUCOSE,POINT OF CARE 334 MG/DL (70-110)
[2023-09-19 18:52] LABS: COVID AG,FIA SOURCE NASAL SWAB
[2023-09-19 19:13] LABS: SARS-COV2 (COVID) ANTIGEN,FIA Negative (Negative)
[2023-09-19 19:16] VITALS: BP 144/79; PULSE 100; RESP 14
[2023-09-19] MEDS ORDERED: LORazepam 2 MG/ML VIAL IM ONE (19:30)
[2023-09-19] MEDS ORDERED: DiphenhydrAMINE HCL 50 MG/ML VIAL IM ONE (19:30)
[2023-09-19] MEDS ORDERED: HALOPERIDOL LACTATE 5 MG/ML VIAL IM ONE (19:30)
[2023-09-20] MEDS: METOPROLOL TARTRATE 25 MG TABLET PO ONE ×2 (05:51→05:54)
== END 2023-09-20 05:54 | disposition home or self-care (01) ==
LOC: EMS 17:42
DX: F10.129 Alcohol abuse with intoxication, unspecified (principal); E11.9 Type 2 diabetes mellitus without complications; F31.9 Bipolar disorder, unspecified; F20.9 Schizophrenia, unspecified; I10 Essential (primary) hypertension; Z88.8 Allergy status to other drugs, medicaments and biological substances; Z20.822 Contact with and (suspected) exposure to COVID-19
CPT/HCPCS: 99285; 87426; 80053; 82962; 85025; 96372; G0480; J1200; J1630; J2060

== ENCOUNTER 2024-11-30 19:33 | Emergency (ER) | payer OTHER ==
[~2024-11-30] VITALS: Ht 127 cm; Wt 118.0 kg
[~2024-11-30 19:33] MED LIST changes: +DULA0.75 SQ; +METO25XL PO
[2024-11-30] MEDS: DiphenhydrAMINE HCL 50 MG/ML VIAL IM ONE (21:30)
[2024-11-30] MEDS: HALOPERIDOL LACTATE 5 MG/ML VIAL IM ONE (21:30)
[2024-11-30] MEDS: LORazepam 2 MG/ML VIAL IM ONE (21:30)
[2024-12-01] MEDS: TraMADol HCL 50 MG TABLET PO ONE (04:04)
[2024-12-01 09:04] LABS: COVID AG,FIA SOURCE NASAL SWAB
[2024-12-01 09:51] LABS: SARS-COV2 (COVID) ANTIGEN,FIA Negative (Negative)
[2024-12-01] MEDS: HALOPERIDOL 5 MG TABLET PO PRN (10:00)
[2024-12-01] MEDS: LORazepam 1 MG TABLET PO PRN (10:00)
[2024-12-01] MEDS: OxyCODONE HCL/ACETAMINOPHEN 5-325 MG TABLET PO PRN (15:02)
[2024-12-01 15:20] LABS: BASOPHILS % (AUTO) 1.3 % (0.0-2.0); EOSINOPHILS % (AUTO) 1.6 % (1.0-6.0); HEMATOCRIT 44.9 % (41-53); HEMOGLOBIN 14.7 g/dL (13.5-17.5); LYMPHOCYTES # (AUTO) 1.3 K/uL (1.0-4.8); LYMPHOCYTES % (AUTO) 15.1 % (22.0-44.0); MEAN CORPUSCULAR HEMOGLOBIN 27.4 pg (26.0-34.0); MEAN CORPUSCULAR HGB CONC 32.6 G/dL (31.0-37.0); MEAN CORPUSCULAR VOLUME 84 fL (80-100); MONOCYTES # (AUTO) 0.4 K/uL (0.1-1.0); NEUTROPHILS # (AUTO) 6.8 K/uL (1.8-7.7); PLATELET COUNT (AUTO) 251 K/uL (150-450); RED BLOOD CELL COUNT(AUTO) 5.35 MIL/uL (4.50-5.90); RED CELL DISTRIBUTION WIDTH 14.7 % (11.5-14.5); WHITE BLOOD COUNT (AUTO) 8.9 K/uL (4.5-11.0)
[2024-12-01 15:26] LABS: ANION GAP 9 mmol/L (8-16); CALCIUM, TOTAL 9.2 mg/dL (8.8-10.5); CARBON DIOXIDE 24 mmol/L (22-29); CHLORIDE 106 mmol/L (98-107); CREATININE 1.24 mg/dL (0.60-1.30); GLOMERULAR FILTR. RATE CALC > 60 mL/min (>60); GLUCOSE,RANDOM 185 mg/dL (70-110); POTASSIUM 3.8 mmol/L (3.5-5.1); SODIUM SERUM 139 mmol/L (136-145); UREA NITROGEN, BLOOD 15 mg/dL (7-18)
[2024-12-01 15:41] LABS: ALCOHOL, BLOOD (SERUM) < 3 mg/dL (0-10)
[2024-12-01] MEDS ORDERED: PREG100C56 PO (17:37)
[2024-12-01] MEDS ORDERED: OXYC20TA58 PO (17:37)
[2024-12-01] MEDS ORDERED: NEED-113 (17:37)
[2024-12-01] MEDS ORDERED: OXYC5TAB3 PO (17:37)
[2024-12-01] MEDS ORDERED: ATOR20TA65 PO (17:37)
[2024-12-01] MEDS ORDERED: TAMS0.4C94 PO (17:37)
[2024-12-01] MEDS ORDERED: DESV50TA35 PO (17:37)
[2024-12-01] MEDS ORDERED: INSU100I26 SQ (17:37)
[2024-12-01] MEDS ORDERED: LOSA-382 PO (17:37)
[2024-12-01] MEDS ORDERED: ZOLP-162 PO (17:37)
[2024-12-01] MEDS ORDERED: LEVE-71 PO (17:37)
[2024-12-01] MEDS ORDERED: METO25 PO (18:28)
[2024-12-01] MEDS ORDERED: ALBU18HF12 IH (18:28)
[2024-12-01] MEDS ORDERED: FLUT16SP NASAL (18:28)
[2024-12-01] MEDS: NICOTINE 21 MG/24 HOUR PATCH TD ONE (18:29)
[2024-12-01] MEDS ORDERED: METOPROLOL SUCCINATE 25 MG ER TABLET PO ONE (18:30)
[2024-12-01] MEDS: METOPROLOL TARTRATE 25 MG TABLET PO ONE (18:50)
[2024-12-01] MEDS: ZOLPIDEM TARTRATE 10 MG TABLET PO PRN (21:58)
[2024-12-02] MEDS: OxyCODONE HCL/ACETAMINOPHEN 5-325 MG TABLET PO ONE (02:13)
[2024-12-02] MEDS: OxyCODONE HCL/ACETAMINOPHEN 10-325 MG TABLET PO ONE (07:58)
[2024-12-02] MEDS: METOPROLOL TARTRATE 25 MG TABLET PO SCH ×2 (08:42→21:22)
[2024-12-02] MEDS ORDERED: METOPROLOL SUCCINATE 25 MG ER TABLET PO SCH (09:00)
[2024-12-02] MEDS: PREGABALIN 50 MG CAPSULE PO SCH (14:16)
[2024-12-02 16:36] LABS: PH,URINE DRUG SCREEN 6.5 (5.0-8.0)
[2024-12-02 16:49] LABS: ALCOHOL, URINE DRUG SCREEN NEGATIVE (NEGATIVE); AMPHET/METH SCREEN,URINE NEGATIVE (NEGATIVE); BARBITURATE SCREEN, URINE NEGATIVE (NEGATIVE); BENZODIAZEPINES SCREEN,URINE NEGATIVE (NEGATIVE); CANNABINOID SCREEN,URINE POSITIVE (NEGATIVE); COCAINE SCREEN,URINE NEGATIVE (NEGATIVE); METHADONE SCREEN, URINE NEGATIVE (NEGATIVE); OPIATE SCREEN,URINE POSITIVE (NEGATIVE); PHENCYCLIDINE SCREEN,URINE NEGATIVE (NEGATIVE)
[2024-12-02 19:50] VITALS: TEMP 98.6
[2024-12-02] MEDS ORDERED: PETROLATUM,WHITE 28 GM JELLY TP PRN (20:45)
[2024-12-02] MEDS ORDERED: OMEPRAZOLE 20 MG CAPSULE PO PRN (20:45)
[2024-12-02] MEDS ORDERED: MAG HYDROX/ALUMINUM HYD/SIMETH ES 30 ML SUSPENSION UDCUP PO PRN (20:45)
[2024-12-02] MEDS ORDERED: BENZOCAINE/MENTHOL LOZENGE PO PRN (20:45)
[2024-12-02] MEDS ORDERED: DOCUSATE SODIUM 100 MG CAPSULE PO PRN (20:45)
[2024-12-02] MEDS ORDERED: LOPERAMIDE HCL 2 MG CAPSULE PO PRN (20:45)
[2024-12-02] MEDS ORDERED: MAGNESIUM HYDROXIDE SUSPENSION 30 ML UDCUP PO PRN (20:45)
[2024-12-02] MEDS ORDERED: BACITRACIN 28 GM OINTMENT TP PRN (20:45)
[2024-12-02] MEDS ORDERED: ALBUTEROL SULFATE HFA 90 MCG/PUFF 8 GM INHALER IH PRN (20:45)
[2024-12-02] MEDS ORDERED: ONDANSETRON 4 MG TABLET PO PRN (20:45)
[2024-12-02] MEDS: LOSARTAN POTASSIUM 50 MG TABLET PO SCH (21:22)
[2024-12-02] MEDS: OxyCODONE HCL 5 MG IR TABLET PO PRN (21:22)
[2024-12-02] MEDS: ACETAMINOPHEN 325 MG TABLET PO PRN (21:22)
[2024-12-02] MEDS: LevETIRAcetam 500 MG TABLET PO SCH (21:22)
[2024-12-02] MEDS: IBUPROFEN 600 MG TABLET PO PRN (21:23)
[2024-12-02] MEDS: NICOTINE 21 MG/24 HOUR PATCH TD SCH (21:33)
[2024-12-03] MEDS: CloNIDine HCL 0.1 MG TABLET PO PRN (03:05)
[2024-12-03] MEDS: ATORVASTATIN CALCIUM 20 MG TABLET PO SCH (09:00)
[2024-12-03] MEDS: TAMSULOSIN HCL 0.4 MG CAPSULE PO SCH (09:00)
[2024-12-03 09:39] VITALS: BP 165/89; PULSE 79; RESP 18; O2SAT 98
[2024-12-03] MEDS ORDERED: NICOTINE 21 MG/24 HOUR PATCH TD SCH (21:00)
== END 2024-12-03 12:50 | disposition home or self-care (01) ==
LOC: EDUNIT# 19:33 → EMS 19:37
DX: F20.9 Schizophrenia, unspecified (principal); F31.9 Bipolar disorder, unspecified; E11.9 Type 2 diabetes mellitus without complications; I10 Essential (primary) hypertension; Z79.899 Other long term (current) drug therapy; Z88.8 Allergy status to other drugs, medicaments and biological substances; Z89.511 Acquired absence of right leg below knee; Z89.512 Acquired absence of left leg below knee; Z91.041 Radiographic dye allergy status; Z20.822 Contact with and (suspected) exposure to COVID-19
CPT/HCPCS: 99285; 87426; 80048; 85025; 36415; 96372; 80307; G0480

== ENCOUNTER 2024-12-25 04:26 | Emergency (ER) | payer OTHER ==
[~2024-12-25] VITALS: Ht 121.9 cm; Wt 118.0 kg
[~2024-12-25 04:26] MED LIST changes: +ALBU18HF12 IH; +ATOR20TA65 PO; -BUSP15 PO; +DESV50TA35 PO; -DULA0.75 SQ; -DULO-113 PO; +FLUT16SP NASAL; +INSU100I26 SQ; +LEVE-71 PO; +LOSA-382 PO; -LURA80TA4 PO; +METO25 PO; -METO25XL PO; +NEED-113; +OXYC20TA58 PO; +OXYC5TAB3 PO; +PREG100C56 PO; +TAMS0.4C94 PO; +ZOLP-162 PO
[2024-12-25 04:48] VITALS: RESP 22; O2SAT 0
[2024-12-25 05:09] LABS: COVID AG,FIA SOURCE NASAL SWAB
[2024-12-25 05:15] LABS: BASOPHILS % (AUTO) 1.1 % (0.0-2.0); HEMATOCRIT 43.7 % (41-53); HEMOGLOBIN 14.6 g/dL (13.5-17.5); LYMPHOCYTES # (AUTO) 1.2 K/uL (1.0-4.8); LYMPHOCYTES % (AUTO) 12.5 % (22.0-44.0); MEAN CORPUSCULAR HEMOGLOBIN 28.3 pg (26.0-34.0); MEAN CORPUSCULAR HGB CONC 33.4 G/dL (31.0-37.0); MEAN CORPUSCULAR VOLUME 85 fL (80-100); MONOCYTES # (AUTO) 0.5 K/uL (0.1-1.0); MONOCYTES % (AUTO) 5.3 % (2.0-9.0); NEUTROPHILS # (AUTO) 7.7 K/uL (1.8-7.7); NEUTROPHILS % (AUTO) 79.1 % (40.0-70.0); PLATELET COUNT (AUTO) 248 K/uL (150-450); RED BLOOD CELL COUNT(AUTO) 5.16 MIL/uL (4.50-5.90); RED CELL DISTRIBUTION WIDTH 14.6 % (11.5-14.5); WHITE BLOOD COUNT (AUTO) 9.7 K/uL (4.5-11.0)
[2024-12-25 05:27] LABS: ALCOHOL, BLOOD (SERUM) < 3 mg/dL (0-10); ANION GAP 4 mmol/L (8-16); CALCIUM, TOTAL 9.1 mg/dL (8.8-10.5); CARBON DIOXIDE 26 mmol/L (22-29); CHLORIDE 102 mmol/L (98-107); CREATININE 1.69 mg/dL (0.60-1.30); GLOMERULAR FILTR. RATE CALC 42 mL/min (>60); POTASSIUM 3.6 mmol/L (3.5-5.1); SODIUM SERUM 132 mmol/L (136-145); TROPONIN I-HIGH SENSITIVITY 19 ng/L (<76); UREA NITROGEN, BLOOD 23 mg/dL (7-18)
[2024-12-25 05:28] LABS: GLUCOSE,RANDOM 498 mg/dL (70-110)
[2024-12-25 05:32] LABS: B-TYPE NATRIURETIC PEPTIDE 18 pg/mL (0-100)
[2024-12-25 05:47] LABS: SARS-COV2 (COVID) ANTIGEN,FIA Negative (Negative)
[2024-12-25] MEDS: PERMETHRIN 5% 60 GM CREAM TP ONE (08:00)
[2024-12-25] MEDS: SODIUM CHLORIDE 0.9% 1,000 ML IV ONE (08:03)
[2024-12-25] MEDS: INSULIN REGULAR, HUMAN 100 UNITS/ML IVP ONE (08:03)
[2024-12-25] MEDS ORDERED: CloNIDine HCL 0.1 MG TABLET PO ONE (09:00)
[2024-12-25] MEDS: METOPROLOL TARTRATE 25 MG TABLET PO ONE (09:10)
== END 2024-12-25 12:40 | disposition left against medical advice (07) ==
LOC: EMS 04:28
DX: E11.65 Type 2 diabetes mellitus with hyperglycemia (principal); I10 Essential (primary) hypertension; F20.9 Schizophrenia, unspecified; Z88.8 Allergy status to other drugs, medicaments and biological substances; Z91.041 Radiographic dye allergy status; Z79.899 Other long term (current) drug therapy; Z20.822 Contact with and (suspected) exposure to COVID-19
CPT/HCPCS: 99285; 87426; 80048; 83880; 84484; 85025; 36415; 93005; G0480

== ENCOUNTER 2025-02-02 16:49 | Emergency (ER) | payer OTHER | END 2025-02-02 20:30 | disposition left against medical advice (07) | LOC: EMS 16:49 | DX: R53.1 Weakness (principal); Z53.21 Procedure and treatment not carried out due to patient leaving prior to being seen by health care provider ==

== ENCOUNTER 2025-04-23 12:52 | Inpatient (IN) | payer MEDICARE, OTHER ==
[~2025-04-23] VITALS: Ht 147.3 cm; Wt 123.2 kg
[~2025-04-23 12:52] MED LIST changes: -ALBU18HF12 IH; +BUSP5TAB20 PO; +DIVA-112 PO; -FLUT16SP NASAL; -LEVE-71 PO; -LOSA-382 PO; +OLAN5TAB52 PO; -OXYC20TA58 PO; -OXYC5TAB3 PO; -ZOLP-162 PO
[2025-04-23 13:46] LABS: COVID AG,FIA SOURCE NASAL SWAB
[2025-04-23 14:06] LABS: SARS-COV2 (COVID) ANTIGEN,FIA Negative (Negative)
[2025-04-23 14:24] LABS: PLATELET COUNT (AUTO) 236 K/uL (150-450); RED BLOOD CELL COUNT(AUTO) 3.91 MIL/uL (4.50-5.90); RED CELL DISTRIBUTION WIDTH 13.0 % (11.5-14.5); WHITE BLOOD COUNT (AUTO) 9.0 K/uL (4.5-11.0)
[2025-04-23 14:36] LABS: CALCIUM, TOTAL 8.3 mg/dL (8.8-10.5); CREATININE 2.19 mg/dL (0.60-1.30); GLOMERULAR FILTR. RATE CALC 31.0 mL/min (>60); GLUCOSE,RANDOM 284.0 mg/dL (70-110); SODIUM SERUM 136.0 mmol/L (136-145); UREA NITROGEN, BLOOD 69.0 mg/dL (7-18)
[2025-04-23 19:13] LABS: PH,URINE DRUG SCREEN 6.0 (5.0-8.0)
[2025-04-23 19:20] LABS: ALCOHOL, URINE DRUG SCREEN NEGATIVE (NEGATIVE); AMPHET/METH SCREEN,URINE NEGATIVE (NEGATIVE); BARBITURATE SCREEN, URINE NEGATIVE (NEGATIVE); CANNABINOID SCREEN,URINE NEGATIVE (NEGATIVE); COCAINE SCREEN,URINE NEGATIVE (NEGATIVE); METHADONE SCREEN, URINE NEGATIVE (NEGATIVE)
[2025-04-23] MEDS ORDERED: ZOLPIDEM TARTRATE 5 MG TABLET PO PRN (19:30)
[2025-04-23] MEDS ORDERED: ACETAMINOPHEN 325 MG TABLET PO PRN (19:30)
[2025-04-23] MEDS ORDERED: ONDANSETRON HCL 4 MG/2 ML VIAL IVP PRN (19:30)
[2025-04-23] MEDS ORDERED: DEXTROSE 50%-WATER 25 GM/50 ML SYRINGE IVP PRN (19:30)
[2025-04-23] MEDS ORDERED: BISACODYL 10 MG RECTAL RECTAL SUPPOSITORY PR PRN (19:30)
[2025-04-23] MEDS ORDERED: MAGNESIUM HYDROXIDE SUSPENSION 30 ML UDCUP PO PRN (19:30)
[2025-04-23] MEDS: INSULIN LISPRO 100 UNITS/ML SQ PRN (20:48)
[2025-04-23 21:00] VITALS: BP 141/91; PULSE 93; RESP 18; TEMP 98.6; O2SAT 98
[2025-04-23] MEDS: METOPROLOL TARTRATE 25 MG TABLET PO SCH (21:00)
[2025-04-23] MEDS: SODIUM CHLORIDE 0.9% 1,000 ML IV ONE (21:00)
[2025-04-23] MEDS: DOCUSATE SODIUM 100 MG CAPSULE PO SCH (21:00)
[2025-04-23] MEDS: SODIUM CHLORIDE 0.9% 500 ML IV ONE (21:27)
[2025-04-23] MEDS: HEPARIN SODIUM,PORCINE 5,000 UNITS/ML VIAL SQ SCH (23:14)
[2025-04-24] MEDS: LORazepam 2 MG/ML VIAL IM ONE (01:01)
[2025-04-24 07:00] VITALS: RESP 18
[2025-04-24] MEDS: PANTOPRAZOLE SODIUM 40 MG DR TABLET PO SCH (09:00)
[2025-04-24] MEDS: ATORVASTATIN CALCIUM 20 MG TABLET PO SCH (09:00)
[2025-04-24 09:49] LABS: PLATELET COUNT (AUTO) 224 K/uL (150-450); RED BLOOD CELL COUNT(AUTO) 3.81 MIL/uL (4.50-5.90); RED CELL DISTRIBUTION WIDTH 13.4 % (11.5-14.5); WHITE BLOOD COUNT (AUTO) 5.8 K/uL (4.5-11.0)
[2025-04-24 09:59] LABS: CALCIUM, TOTAL 8.3 mg/dL (8.8-10.5); CREATININE 1.99 mg/dL (0.60-1.30); GLOMERULAR FILTR. RATE CALC 35.0 mL/min (>60); GLUCOSE,RANDOM 155.0 mg/dL (70-110); SODIUM SERUM 137.0 mmol/L (136-145); UREA NITROGEN, BLOOD 70.0 mg/dL (7-18)
[2025-04-24 10:32] VITALS: BP 145/80; PULSE 85; RESP 18; TEMP 98; O2SAT 97
[2025-04-24 13:13] VITALS: BP 111/85; PULSE 74; RESP 18; TEMP 97; O2SAT 97
[2025-04-24] MEDS ORDERED: LORazepam 2 MG/ML VIAL IM ONE (15:15)
[2025-04-24] MEDS: LORazepam 2 MG/ML VIAL IVP ONE (15:58)
[2025-04-24] MEDS ORDERED: LORazepam 2 MG/ML VIAL IVP ONE (16:00)
[2025-04-24] MEDS ORDERED: ZOLPIDEM TARTRATE 10 MG TABLET PO PRN (17:30)
[2025-04-24 18:21] LABS: GLUCOMETER DEV NAME(LOC) 6S.2; GLUCOSE,POINT OF CARE 264 MG/DL (70-110)
[2025-04-24] MEDS: DIVALPROEX SODIUM 500 MG ER TABLET PO SCH (20:51)
[2025-04-24] MEDS: DESVENLAFAXINE SUCCINATE 25 MG PO SCH (20:55)
[2025-04-24] MEDS: DESVENLAFAXINE SUCCINATE 50 MG ER TABLET PO SCH (20:55)
[2025-04-25] MEDS: NICOTINE 21 MG/24 HOUR PATCH TD SCH (09:00)
[2025-04-25] MEDS ORDERED: LORazepam 2 MG/ML VIAL IVP PRN (13:00)
[2025-04-25] MEDS ORDERED: PREG150C47 PO (13:07)
[2025-04-25] MEDS ORDERED: FLUT16SP NASAL (13:07)
[2025-04-25 20:45] VITALS: BP 138/60; PULSE 82; RESP 18; TEMP 98.4; O2SAT 98
[2025-04-25 21:00] LABS: PLATELET COUNT (AUTO) 227 K/uL (150-450); RED BLOOD CELL COUNT(AUTO) 3.96 MIL/uL (4.50-5.90); RED CELL DISTRIBUTION WIDTH 13.1 % (11.5-14.5); WHITE BLOOD COUNT (AUTO) 7.7 K/uL (4.5-11.0)
[2025-04-25 21:10] LABS: CALCIUM, TOTAL 8.7 mg/dL (8.8-10.5); CREATININE 1.72 mg/dL (0.60-1.30); GLOMERULAR FILTR. RATE CALC 41.0 mL/min (>60); GLUCOSE,RANDOM 284.0 mg/dL (70-110); SODIUM SERUM 133.0 mmol/L (136-145); UREA NITROGEN, BLOOD 53.0 mg/dL (7-18)
[2025-04-25 23:16] VITALS: BP 153/75; PULSE 84; RESP 18; TEMP 98.8; O2SAT 98
[2025-04-26 05:25] LABS: GLUCOMETER DEV NAME(LOC) 6S.1D; GLUCOSE,POINT OF CARE 291 MG/DL (70-110)
[2025-04-26 06:45] LABS: GLUCOMETER DEV NAME(LOC) 6N.2C; GLUCOSE,POINT OF CARE 211 MG/DL (70-110)
[2025-04-26 06:49] LABS: PLATELET COUNT (AUTO) 226 K/uL (150-450); RED BLOOD CELL COUNT(AUTO) 3.77 MIL/uL (4.50-5.90); RED CELL DISTRIBUTION WIDTH 12.6 % (11.5-14.5); WHITE BLOOD COUNT (AUTO) 8.5 K/uL (4.5-11.0)
[2025-04-26 07:02] LABS: CALCIUM, TOTAL 8.7 mg/dL (8.8-10.5); CREATININE 1.56 mg/dL (0.60-1.30); GLOMERULAR FILTR. RATE CALC 46.0 mL/min (>60); GLUCOSE,RANDOM 226.0 mg/dL (70-110); SODIUM SERUM 133.0 mmol/L (136-145); UREA NITROGEN, BLOOD 42.0 mg/dL (7-18)
[2025-04-26 08:50] VITALS: BP 142/81; PULSE 69; RESP 19; TEMP 97.5; O2SAT 97
[2025-04-26] MEDS ORDERED: PANT-31 PO (11:55)
[2025-04-26] MEDS ORDERED: DESV50TA35 PO (12:22)
[2025-04-26] MEDS ORDERED: DIVA-153 PO (12:23)
[2025-04-26] MEDS ORDERED: NICO-650 TP (12:24)
[2025-04-26] MEDS ORDERED: LORA2TAB18 PO (12:25)
[2025-04-26] MEDS ORDERED: MAGN-169 PO (12:25)
[2025-04-26] MEDS ORDERED: TRAM50TA5 PO (12:27)
[2025-04-26 18:46] LABS: GLUCOMETER DEV NAME(LOC) 6S.2; GLUCOSE,POINT OF CARE 169 MG/DL (70-110)
== END 2025-04-26 15:35 | DRG 683 ==
LOC: EMS 12:55 → EDBEDREQ 16:02 → EDBEDREQSVC 16:02 → EDH 16:09 → 6S 20:50
PROVIDERS: ADMIT Internal Medicine; ATTEND Internal Medicine
DX: N17.9 Acute kidney failure, unspecified (principal); R45.851 Suicidal ideations; Z68.43 Body mass index [BMI] 50.0-59.9, adult; Z59.00 Homelessness unspecified; F25.9 Schizoaffective disorder, unspecified; E87.5 Hyperkalemia; F41.9 Anxiety disorder, unspecified; G40.909 Epilepsy, unspecified, not intractable, without status epilepticus; G47.00 Insomnia, unspecified; I12.9 Hypertensive chronic kidney disease with stage 1 through stage 4 chronic kidney disease, or unspecified chronic kidney disease; E66.9 Obesity, unspecified; I25.10 Atherosclerotic heart disease of native coronary artery without angina pectoris; J44.9 Chronic obstructive pulmonary disease, unspecified; K21.9 Gastro-esophageal reflux disease without esophagitis; K59.00 Constipation, unspecified; N18.30 Chronic kidney disease, stage 3 unspecified; N40.0 Benign prostatic hyperplasia without lower urinary tract symptoms; Z20.822 Contact with and (suspected) exposure to COVID-19; E11.22 Type 2 diabetes mellitus with diabetic chronic kidney disease; Z79.899 Other long term (current) drug therapy; Z89.511 Acquired absence of right leg below knee; Z89.512 Acquired absence of left leg below knee; Z91.199 Patient's noncompliance with other medical treatment and regimen due to unspecified reason; Z93.3 Colostomy status; Z91.041 Radiographic dye allergy status
CPT/HCPCS: 80048; 80307; 82962; 85025; 99285; G0480; J1630; J1644; J2060

== ENCOUNTER 2025-04-25 09:14 | Inpatient (IN) | payer MEDICARE, MEDICAID ==
[~2025-04-25] VITALS: Ht 188 cm; Wt 105.0 kg
[~2025-04-25 09:14] MED LIST changes: -PREG100C56 PO
[2025-04-25] MEDS ORDERED: PREG150C47 PO (13:07)
[2025-04-25] MEDS ORDERED: FLUT16SP NASAL (13:07)
[2025-04-26] MEDS ORDERED: DESVENLAFAXINE SUCCINATE 50 MG ER TABLET PO SCH (09:00)
[2025-04-26] MEDS ORDERED: DESVENLAFAXINE SUCCINATE 25 MG PO SCH ×2 (09:00→17:00)
[2025-04-26] MEDS ORDERED: PANT-31 PO (11:55)
[2025-04-26] MEDS ORDERED: DESV50TA35 PO (12:22)
[2025-04-26] MEDS ORDERED: DIVA-153 PO (12:23)
[2025-04-26] MEDS ORDERED: NICO-650 TP (12:24)
[2025-04-26] MEDS ORDERED: LORA2TAB18 PO (12:25)
[2025-04-26] MEDS ORDERED: MAGN-169 PO (12:25)
[2025-04-26] MEDS ORDERED: TRAM50TA5 PO (12:27)
[2025-04-26 17:09] VITALS: BP 149/84; PULSE 67; RESP 16; TEMP 97.6; O2SAT 99
[2025-04-26] MEDS: DESVENLAFAXINE SUCCINATE 50 MG ER TABLET PO SCH (17:52)
[2025-04-26] MEDS ORDERED: ONDANSETRON 4 MG TABLET PO PRN (19:00)
[2025-04-26] MEDS ORDERED: GuaiFENesin/D-METHORPHAN [SUGAR-FREE] 200-20MG/10 ML SYRUP UDCUP PO PRN (19:00)
[2025-04-26] MEDS ORDERED: NICOTINE 14 MG/24 HOUR PATCH TD PRN (19:00)
[2025-04-26] MEDS ORDERED: ALBUTEROL SULFATE HFA 90 MCG/PUFF 8 GM INHALER IH PRN (19:00)
[2025-04-26] MEDS ORDERED: DOCUSATE SODIUM 100 MG CAPSULE PO PRN (19:00)
[2025-04-26] MEDS ORDERED: PETROLATUM,WHITE 28 GM JELLY TP PRN (19:00)
[2025-04-26] MEDS ORDERED: MAGNESIUM HYDROXIDE SUSPENSION 30 ML UDCUP PO PRN (19:00)
[2025-04-26] MEDS ORDERED: DEXTROSE 50%-WATER 25 GM/50 ML SYRINGE IVP PRN (19:00)
[2025-04-26 21:00] VITALS: RESP 18
[2025-04-26] MEDS: DIVALPROEX SODIUM 500 MG ER TABLET PO SCH (21:04)
[2025-04-26] MEDS: INSULIN LISPRO 100 UNITS/ML SQ PRN (21:39)
[2025-04-26 22:04] VITALS: RESP 18
[2025-04-26 22:20] LABS: GLUCOMETER DEV NAME(LOC) 3E.C; GLUCOSE,POINT OF CARE 205 MG/DL (70-110)
[2025-04-26 22:36] VITALS: RESP 16
[2025-04-26] MEDS: ZOLPIDEM TARTRATE 10 MG TABLET PO PRN (23:48)
[2025-04-27] VITALS (7 sets, daily range): BP systolic 120–130; BP diastolic 60–70; PULSE 64–70; RESP 18–20; TEMP 97.7–98; O2SAT 96–98
[2025-04-27 06:50] LABS: GLUCOMETER DEV NAME(LOC) 3E.C; GLUCOSE,POINT OF CARE 236 MG/DL (70-110)
[2025-04-27] MEDS: NICOTINE 21 MG/24 HOUR PATCH TD SCH (07:56)
[2025-04-27 08:08] LABS: ASPARTATE AMINOTRANSFERASE 12.0 U/L (15-37); CALCIUM, TOTAL 8.9 mg/dL (8.8-10.5); CREATININE 1.63 mg/dL (0.60-1.30); GLOMERULAR FILTR. RATE CALC 44.0 mL/min (>60); GLUCOSE,RANDOM 203.0 mg/dL (70-110); SODIUM SERUM 134.0 mmol/L (136-145); TOTAL PROTEIN, SERUM 7.0 g/dL (6.4-8.2); UREA NITROGEN, BLOOD 42.0 mg/dL (7-18)
[2025-04-27] MEDS: METOPROLOL TARTRATE 25 MG TABLET PO SCH (08:56)
[2025-04-27] MEDS: PANTOPRAZOLE SODIUM 40 MG DR TABLET PO SCH (08:57)
[2025-04-27] MEDS: ATORVASTATIN CALCIUM 20 MG TABLET PO SCH (08:57)
[2025-04-27] MEDS ORDERED: DESVENLAFAXINE SUCCINATE 50 MG ER TABLET PO SCH (09:00)
[2025-04-27 09:31] LABS: CHOL/HDL RATIO 3.3 (4.2-7.3); LDL CHOL (CALC.) 66.0 mg/dL (0-130)
[2025-04-27 12:06] LABS: GLUCOMETER DEV NAME(LOC) 3E.C; GLUCOSE,POINT OF CARE 186 MG/DL (70-110)
[2025-04-27 16:50] LABS: GLUCOMETER DEV NAME(LOC) 3E.C; GLUCOSE,POINT OF CARE 218 MG/DL (70-110)
[2025-04-27 21:36] LABS: GLUCOMETER DEV NAME(LOC) 3E.C; GLUCOSE,POINT OF CARE 217 MG/DL (70-110)
[2025-04-28 06:50] LABS: GLUCOMETER DEV NAME(LOC) 3E.C; GLUCOSE,POINT OF CARE 183 MG/DL (70-110)
[2025-04-28 08:39] VITALS: BP 150/70; PULSE 60; RESP 17; TEMP 97.6; O2SAT 99
[2025-04-28] MEDS: LOPERAMIDE HCL 2 MG CAPSULE PO PRN (14:18)
[2025-04-28] MEDS: PREGABALIN 50 MG CAPSULE PO SCH (17:00)
[2025-04-28 17:31] LABS: GLUCOMETER DEV NAME(LOC) 3E.C; GLUCOSE,POINT OF CARE 233 MG/DL (70-110)
[2025-04-28] MEDS: ZOLPIDEM TARTRATE 10 MG TABLET PO SCH (21:00)
[2025-04-28 21:47] VITALS: BP 135/69; PULSE 65; RESP 19; O2SAT 99
[2025-04-28 22:49] VITALS: BP 135/69; PULSE 65; RESP 19; O2SAT 99
[2025-04-28 22:51] VITALS: RESP 18
[2025-04-28 22:55] LABS: GLUCOMETER DEV NAME(LOC) 3E.C; GLUCOSE,POINT OF CARE 270 MG/DL (70-110)
[2025-04-29 06:37] VITALS: RESP 18
[2025-04-29 07:10] LABS: GLUCOMETER DEV NAME(LOC) 3E.C; GLUCOSE,POINT OF CARE 253 MG/DL (70-110)
[2025-04-29 08:40] VITALS: BP 142/76; PULSE 94; RESP 18; TEMP 98.2
[2025-04-29 12:10] LABS: GLUCOMETER DEV NAME(LOC) 3E.C; GLUCOSE,POINT OF CARE 132 MG/DL (70-110)
[2025-04-29] MEDS: PREGABALIN 75 MG CAPSULE PO SCH (16:13)
[2025-04-29 17:13] VITALS: BP 156/82; PULSE 64; RESP 18; TEMP 98.6
[2025-04-29] MEDS: LURASIDONE HCL 20 MG TABLET PO SCH (17:14)
[2025-04-29 18:13] VITALS: BP 139/69; PULSE 72; RESP 18; TEMP 98.6
[2025-04-29 18:26] LABS: GLUCOMETER DEV NAME(LOC) 3E.C; GLUCOSE,POINT OF CARE 158 MG/DL (70-110)
[2025-04-29 23:04] VITALS: BP 112/59; PULSE 60; RESP 18; TEMP 98.6
[2025-04-30 02:13] VITALS: RESP 18
[2025-04-30 07:12] LABS: CALCIUM, TOTAL 8.7 mg/dL (8.8-10.5); CREATININE 1.86 mg/dL (0.60-1.30); GLOMERULAR FILTR. RATE CALC 38.0 mL/min (>60); GLUCOSE,RANDOM 239.0 mg/dL (70-110); SODIUM SERUM 133.0 mmol/L (136-145); UREA NITROGEN, BLOOD 63.0 mg/dL (7-18)
[2025-04-30 07:15] LABS: GLUCOMETER DEV NAME(LOC) 3E.C; GLUCOSE,POINT OF CARE 235 MG/DL (70-110)
[2025-04-30 09:43] VITALS: RESP 18
[2025-04-30 09:50] VITALS: BP 121/63; PULSE 68; RESP 20; TEMP 97.8; O2SAT 98
[2025-04-30 15:43] VITALS: BP 130/69; PULSE 69; RESP 20; TEMP 98; O2SAT 97
[2025-04-30] MEDS: IBUPROFEN 400 MG TABLET PO PRN (15:44)
[2025-04-30 17:26] LABS: GLUCOMETER DEV NAME(LOC) 3E.C; GLUCOSE,POINT OF CARE 265 MG/DL (70-110)
[2025-04-30 20:05] VITALS: BP 137/73; PULSE 67; RESP 20; TEMP 98.1; O2SAT 98
[2025-04-30] MEDS: ETHYL ALCOHOL 62% ANTISEPTIC NASAL SANITIZER 0.6 ML AMPUL NASAL SCH (21:00)
[2025-04-30] MEDS: INSULIN GLARGINE,HUM.REC.ANLOG 100 UNITS/ML SQ SCH (21:24)
[2025-04-30 21:41] LABS: GLUCOMETER DEV NAME(LOC) 3E.C; GLUCOSE,POINT OF CARE 236 MG/DL (70-110)
[2025-04-30] MEDS ORDERED: BREXPIPRAZOLE 0.25 MG TABLET PO PRN (22:00)
[2025-05-01] MEDS: PREGABALIN 50 MG CAPSULE PO SCH (08:38)
[2025-05-01 08:39] VITALS: BP 135/67; PULSE 75; RESP 18; O2SAT 0
[2025-05-01 08:42] VITALS: BP 137/68; PULSE 76; RESP 19; TEMP 98.2; O2SAT 97
[2025-05-01 08:56] LABS: GLUCOMETER DEV NAME(LOC) 3E.C; GLUCOSE,POINT OF CARE 270 MG/DL (70-110)
[2025-05-01 12:06] LABS: GLUCOMETER DEV NAME(LOC) 3E.C; GLUCOSE,POINT OF CARE 276 MG/DL (70-110)
[2025-05-01 12:12] VITALS: BP 138/71; PULSE 65; RESP 20; O2SAT 98
[2025-05-01 15:15] VITALS: BP 135/69; PULSE 75; RESP 18; O2SAT 99
[2025-05-01 16:49] VITALS: BP 141/79; PULSE 89; RESP 18; O2SAT 98
[2025-05-01 17:06] LABS: GLUCOMETER DEV NAME(LOC) 3E.C; GLUCOSE,POINT OF CARE 290 MG/DL (70-110)
[2025-05-01 20:11] LABS: GLUCOMETER DEV NAME(LOC) 3E.C; GLUCOSE,POINT OF CARE 268 MG/DL (70-110)
[2025-05-01] MEDS: BREXPIPRAZOLE 0.25 MG TABLET PO SCH (21:00)
[2025-05-01 21:50] VITALS: RESP 18; TEMP 97.6; O2SAT 100
[2025-05-02 02:00] VITALS: BP 150/88; PULSE 67; RESP 17; TEMP 97.1; O2SAT 98
[2025-05-02 08:36] LABS: PHOSPHORUS 4.2 mg/dL (2.5-4.9)
[2025-05-02 14:05] VITALS: BP 124/68; PULSE 66; RESP 18; TEMP 97.9; O2SAT 97
[2025-05-02 14:06] VITALS: BP 145/69; PULSE 78; RESP 18; TEMP 98.2; O2SAT 97
[2025-05-02] MEDS: CIPROFLOXACIN HCL 250 MG TABLET PO SCH (17:10)
[2025-05-02 18:05] LABS: GLUCOMETER DEV NAME(LOC) 3E.C; GLUCOSE,POINT OF CARE 303 MG/DL (70-110)
[2025-05-02 21:35] LABS: GLUCOMETER DEV NAME(LOC) 3E.C; GLUCOSE,POINT OF CARE 320 MG/DL (70-110)
[2025-05-02 22:27] VITALS: RESP 18
[2025-05-02 23:01] VITALS: BP 100/60; PULSE 87; RESP 18; TEMP 97.9; O2SAT 96
[2025-05-02 23:27] VITALS: RESP 18
[2025-05-03 05:00] VITALS: RESP 18
[2025-05-03 06:00] VITALS: RESP 18
[2025-05-03 11:15] VITALS: BP 132/85; PULSE 95; RESP 18; TEMP 98.4
[2025-05-03 12:00] LABS: GLUCOMETER DEV NAME(LOC) 3E.C; GLUCOSE,POINT OF CARE 291 MG/DL (70-110)
[2025-05-03 12:15] VITALS: BP 139/71; PULSE 82; RESP 18; TEMP 97.4
[2025-05-03 17:51] LABS: GLUCOMETER DEV NAME(LOC) 3E.C; GLUCOSE,POINT OF CARE 281 MG/DL (70-110)
[2025-05-03 20:26] LABS: GLUCOMETER DEV NAME(LOC) 3E.C; GLUCOSE,POINT OF CARE 261 MG/DL (70-110)
[2025-05-03 22:58] VITALS: RESP 18; TEMP 98.2
[2025-05-04 06:35] LABS: GLUCOMETER DEV NAME(LOC) 3E.C; GLUCOSE,POINT OF CARE 307 MG/DL (70-110)
[2025-05-04 12:00] LABS: GLUCOMETER DEV NAME(LOC) 3E.C; GLUCOSE,POINT OF CARE 307 MG/DL (70-110)
[2025-05-04 13:11] VITALS: BP 124/66; PULSE 71; RESP 18; TEMP 98.1; O2SAT 98
[2025-05-04] MEDS ORDERED: LORazepam 2 MG/ML VIAL ONE (18:56)
[2025-05-04] MEDS: LORazepam 2 MG/ML VIAL IM ONE (18:57)
[2025-05-04 21:17] VITALS: RESP 18
[2025-05-05 17:34] VITALS: BP 150/94; PULSE 78; RESP 20
[2025-05-05 17:36] LABS: GLUCOMETER DEV NAME(LOC) 3E.C; GLUCOSE,POINT OF CARE 170 MG/DL (70-110)
[2025-05-05 21:03] VITALS: RESP 17; TEMP 98.3
[2025-05-05] MEDS: ESZOPICLONE 3 MG TABLET PO PRN (22:01)
[2025-05-06 00:20] VITALS: BP 139/91; PULSE 81; RESP 19; TEMP 97.8; O2SAT 98
[2025-05-06 01:24] VITALS: RESP 18
[2025-05-06] MEDS: LORazepam 2 MG/ML VIAL IM ONE (04:46)
[2025-05-06] MEDS: TRIHEXYPHENIDYL HCL 2 MG TABLET PO SCH (13:00)
[2025-05-06 13:21] VITALS: RESP 19
[2025-05-06 20:26] VITALS: RESP 18
[2025-05-06] MEDS: DESVENLAFAXINE SUCCINATE 50 MG ER TABLET PO SCH (21:00)
[2025-05-06 22:30] VITALS: BP 142/88; PULSE 76; RESP 20; TEMP 98; O2SAT 97
[2025-05-06 23:32] VITALS: RESP 18
[2025-05-07] VITALS (7 sets, daily range): BP systolic 105–158; BP diastolic 75–98; PULSE 84–93; RESP 16–18; TEMP 97.5–97.9; O2SAT 95–99
[2025-05-07] MEDS: PREGABALIN 50 MG CAPSULE PO PRN (01:50)
[2025-05-07 07:25] LABS: CALCIUM, TOTAL 9.0 mg/dL (8.8-10.5); CREATININE 1.69 mg/dL (0.60-1.30); GLOMERULAR FILTR. RATE CALC 42.0 mL/min (>60); GLUCOSE,RANDOM 182.0 mg/dL (70-110); SODIUM SERUM 138.0 mmol/L (136-145); UREA NITROGEN, BLOOD 45.0 mg/dL (7-18)
[2025-05-07 07:30] LABS: GLUCOMETER DEV NAME(LOC) 3E.C; GLUCOSE,POINT OF CARE 178 MG/DL (70-110)
[2025-05-07 12:05] LABS: GLUCOMETER DEV NAME(LOC) 3E.C; GLUCOSE,POINT OF CARE 286 MG/DL (70-110)
[2025-05-07] MEDS ORDERED: GABAPENTIN 300 MG CAPSULE PO PRN (17:15)
[2025-05-07] MEDS ORDERED: GABAPENTIN 400 MG CAPSULE PO PRN (17:15)
[2025-05-07] MEDS: LURASIDONE HCL 20 MG TABLET PO SCH (17:26)
[2025-05-07 17:31] LABS: GLUCOMETER DEV NAME(LOC) 3E.C; GLUCOSE,POINT OF CARE 287 MG/DL (70-110)
[2025-05-07 20:10] LABS: GLUCOMETER DEV NAME(LOC) 3E.C; GLUCOSE,POINT OF CARE 347 MG/DL (70-110)
[2025-05-07] MEDS: GABAPENTIN 300 MG CAPSULE PO SCH (20:39)
[2025-05-07] MEDS: ACETAMINOPHEN 325 MG TABLET PO PRN (20:40)
[2025-05-08 02:45] VITALS: BP 162/73; PULSE 87; RESP 18; TEMP 98.1; O2SAT 98
[2025-05-08 06:31] LABS: GLUCOMETER DEV NAME(LOC) 3E.C; GLUCOSE,POINT OF CARE 294 MG/DL (70-110)
[2025-05-08 08:42] VITALS: BP 142/86; PULSE 79; RESP 18; TEMP 97.2; O2SAT 98
[2025-05-08 11:07] VITALS: BP 158/93; PULSE 81; RESP 18; TEMP 97.6; O2SAT 99
[2025-05-08 11:55] LABS: GLUCOMETER DEV NAME(LOC) 3E.C; GLUCOSE,POINT OF CARE 368 MG/DL (70-110)
[2025-05-08] MEDS: VALPROIC ACID 250 MG/5 ML SOLUTION UDCUP PO SCH (12:53)
[2025-05-08 15:16] VITALS: BP 149/78; PULSE 78; RESP 18; TEMP 97.9; O2SAT 98
[2025-05-08 17:41] LABS: GLUCOMETER DEV NAME(LOC) 3E.C; GLUCOSE,POINT OF CARE 302 MG/DL (70-110)
[2025-05-08 20:11] LABS: GLUCOMETER DEV NAME(LOC) 3E.C; GLUCOSE,POINT OF CARE 324 MG/DL (70-110)
[2025-05-08] MEDS: ZOLPIDEM TARTRATE 10 MG TABLET PO SCH (20:27)
[2025-05-08 20:42] VITALS: BP_SYST 167; BP_SYST 177; BP_DIAS 66; PULSE 78; RESP 18; TEMP 97.7; O2SAT 96
[2025-05-09 03:58] VITALS: BP 148/94; PULSE 71; RESP 18; TEMP 97.8; O2SAT 97
[2025-05-09 05:16] LABS: GLUCOMETER DEV NAME(LOC) 3E.C; GLUCOSE,POINT OF CARE 251 MG/DL (70-110)
[2025-05-09 09:47] VITALS: BP 124/68; PULSE 66; RESP 18; TEMP 97.9; O2SAT 98
[2025-05-09 10:02] VITALS: BP 129/79; PULSE 69; RESP 18; O2SAT 99
[2025-05-09 12:05] LABS: GLUCOMETER DEV NAME(LOC) 3E.C; GLUCOSE,POINT OF CARE 360 MG/DL (70-110)
[2025-05-09 16:09] VITALS: BP 115/69; PULSE 90; RESP 18; O2SAT 98
[2025-05-09] MEDS: LURASIDONE HCL 20 MG TABLET PO SCH (17:09)
[2025-05-09 17:10] LABS: GLUCOMETER DEV NAME(LOC) 3E.C; GLUCOSE,POINT OF CARE 385 MG/DL (70-110)
[2025-05-09 21:05] LABS: GLUCOMETER DEV NAME(LOC) 3E.C; GLUCOSE,POINT OF CARE 334 MG/DL (70-110)
[2025-05-09 21:40] VITALS: BP 116/68; PULSE 92; RESP 18; TEMP 97.6; O2SAT 97
[2025-05-10 03:10] VITALS: BP 118/72; RESP 18
[2025-05-10 04:10] VITALS: RESP 18
[2025-05-10 06:50] LABS: GLUCOMETER DEV NAME(LOC) 3E.C; GLUCOSE,POINT OF CARE 313 MG/DL (70-110)
[2025-05-10 09:40] VITALS: BP 129/75; PULSE 80; RESP 18; TEMP 97.6; O2SAT 99
[2025-05-10 11:11] LABS: GLUCOMETER DEV NAME(LOC) 3E.C; GLUCOSE,POINT OF CARE 383 MG/DL (70-110)
[2025-05-10 11:29] VITALS: BP 142/78; PULSE 78; RESP 18; TEMP 98; O2SAT 98
[2025-05-10 17:35] LABS: GLUCOMETER DEV NAME(LOC) 3E.C; GLUCOSE,POINT OF CARE 339 MG/DL (70-110)
[2025-05-10 18:38] VITALS: BP 136/68; PULSE 76; RESP 19; TEMP 97.9; O2SAT 98
[2025-05-10 20:25] LABS: GLUCOMETER DEV NAME(LOC) 3E.C; GLUCOSE,POINT OF CARE 301 MG/DL (70-110)
[2025-05-10] MEDS: METHYL SALICYLATE/MENTH/CAMPH TOPICAL PATCH TP PRN (21:54)
[2025-05-10 23:19] VITALS: BP 129/72; PULSE 72; RESP 18; TEMP 98.1; O2SAT 97
[2025-05-11] VITALS (9 sets, daily range): BP systolic 128–137; BP diastolic 67–80; PULSE 70–75; RESP 17–19; TEMP 97.3–98.3; O2SAT 97–99
[2025-05-11] MEDS: INSULIN LISPRO 100 UNITS/ML SQ ONE (06:46)
[2025-05-11 07:40] LABS: GLUCOMETER DEV NAME(LOC) 3E.C; GLUCOSE,POINT OF CARE 350 MG/DL (70-110)
[2025-05-11 12:01] LABS: GLUCOMETER DEV NAME(LOC) 3E.C; GLUCOSE,POINT OF CARE 312 MG/DL (70-110)
[2025-05-11] MEDS: BACITRACIN 28 GM OINTMENT TP SCH (16:34)
[2025-05-11 17:55] LABS: GLUCOMETER DEV NAME(LOC) 3E.C; GLUCOSE,POINT OF CARE 382 MG/DL (70-110)
[2025-05-11 20:40] LABS: GLUCOMETER DEV NAME(LOC) 3E.C; GLUCOSE,POINT OF CARE 293 MG/DL (70-110)
[2025-05-11] MEDS: MAG HYDROX/ALUMINUM HYD/SIMETH ES 30 ML SUSPENSION UDCUP PO PRN (21:35)
[2025-05-11] MEDS: LOPERAMIDE HCL 2 MG/15 ML SUSPENSION UDCUP PO PRN (22:11)
[2025-05-12 03:30] VITALS: BP 130/72; PULSE 72; RESP 18; TEMP 97.8
[2025-05-12 07:05] LABS: GLUCOMETER DEV NAME(LOC) 3E.C; GLUCOSE,POINT OF CARE 293 MG/DL (70-110)
[2025-05-12] MEDS: LURASIDONE HCL 20 MG TABLET PO PRN (07:56)
[2025-05-12 08:39] VITALS: BP 145/80; PULSE 65; RESP 20; TEMP 98; O2SAT 97
[2025-05-12] MEDS: LORazepam 2 MG/ML VIAL IM ONE (08:58)
[2025-05-12 18:04] VITALS: BP 143/74; PULSE 67; RESP 18; TEMP 98.2; O2SAT 98
[2025-05-12 19:04] VITALS: BP 142/75; PULSE 68; RESP 17; TEMP 98.6; O2SAT 99
[2025-05-13 00:09] VITALS: BP 139/83; PULSE 78; RESP 18; TEMP 97.5
[2025-05-13 05:31] LABS: GLUCOMETER DEV NAME(LOC) 3E.C; GLUCOSE,POINT OF CARE 297 MG/DL (70-110)
[2025-05-13 06:07] VITALS: BP 140/79; PULSE 85; RESP 18; TEMP 97.4
[2025-05-13 09:42] VITALS: BP 135/73; PULSE 68; RESP 16; TEMP 98; O2SAT 99
[2025-05-13 11:51] LABS: GLUCOMETER DEV NAME(LOC) 3E.C; GLUCOSE,POINT OF CARE 302 MG/DL (70-110)
[2025-05-13 18:00] LABS: GLUCOMETER DEV NAME(LOC) 3E.C; GLUCOSE,POINT OF CARE 270 MG/DL (70-110)
[2025-05-13 20:54] VITALS: BP 147/78; PULSE 74; RESP 18; TEMP 98.4; O2SAT 98
[2025-05-13 21:57] VITALS: RESP 18
[2025-05-14] VITALS (8 sets, daily range): BP systolic 117–150; BP diastolic 65–70; PULSE 69–74; RESP 17–18; TEMP 97.8–98.7; O2SAT 95–98
[2025-05-14 06:56] LABS: GLUCOMETER DEV NAME(LOC) 3E.C; GLUCOSE,POINT OF CARE 289 MG/DL (70-110)
[2025-05-14 08:10] LABS: CALCIUM, TOTAL 8.1 mg/dL (8.8-10.5); CREATININE 2.01 mg/dL (0.60-1.30); GLOMERULAR FILTR. RATE CALC 35.0 mL/min (>60); GLUCOSE,RANDOM 212.0 mg/dL (70-110); SODIUM SERUM 137.0 mmol/L (136-145); UREA NITROGEN, BLOOD 81.0 mg/dL (7-18)
[2025-05-14] MEDS: LURASIDONE HCL 40 MG TABLET PO SCH (16:04)
[2025-05-14 17:50] LABS: GLUCOMETER DEV NAME(LOC) 3E.C; GLUCOSE,POINT OF CARE 285 MG/DL (70-110)
[2025-05-14 21:20] LABS: GLUCOMETER DEV NAME(LOC) 3E.C; GLUCOSE,POINT OF CARE 190 MG/DL (70-110)
[2025-05-15] VITALS (10 sets, daily range): BP systolic 111–140; BP diastolic 70–82; PULSE 71–78; RESP 17–18; TEMP 96.8–98.9
[2025-05-15 06:40] LABS: GLUCOMETER DEV NAME(LOC) 3E.C; GLUCOSE,POINT OF CARE 281 MG/DL (70-110)
[2025-05-15] MEDS: MENTHOL/ZINC OXIDE 113 GM OINTMENT TP SCH (09:28)
[2025-05-15 11:36] LABS: GLUCOMETER DEV NAME(LOC) 3E.C; GLUCOSE,POINT OF CARE 272 MG/DL (70-110)
[2025-05-15 17:26] LABS: GLUCOMETER DEV NAME(LOC) 3E.C; GLUCOSE,POINT OF CARE 246 MG/DL (70-110)
[2025-05-15 21:55] LABS: GLUCOMETER DEV NAME(LOC) 3E.C; GLUCOSE,POINT OF CARE 268 MG/DL (70-110)
[2025-05-16] MEDS: LURASIDONE HCL 60 MG TABLET PO SCH (07:44)
[2025-05-16 07:47] VITALS: BP 145/69; PULSE 78; RESP 18; TEMP 97.5
[2025-05-16 07:55] LABS: GLUCOMETER DEV NAME(LOC) 3E.C; GLUCOSE,POINT OF CARE 211 MG/DL (70-110)
[2025-05-16] MEDS: NICOTINE 14 MG/24 HOUR PATCH TD SCH (09:52)
[2025-05-16 11:23] VITALS: BP 160/77; PULSE 60; RESP 18; TEMP 97.6
[2025-05-16 15:56] VITALS: BP 170/77; PULSE 67; RESP 18
[2025-05-16 17:51] LABS: GLUCOMETER DEV NAME(LOC) 3E.C; GLUCOSE,POINT OF CARE 251 MG/DL (70-110)
[2025-05-16 19:55] VITALS: BP 145/65; PULSE 69; RESP 18; TEMP 98.2; O2SAT 98
[2025-05-16 20:48] VITALS: BP 141/74; PULSE 64; RESP 18; TEMP 97.8; O2SAT 97
[2025-05-16 22:36] LABS: GLUCOMETER DEV NAME(LOC) 3E.C; GLUCOSE,POINT OF CARE 301 MG/DL (70-110)
[2025-05-17] MEDS: LURASIDONE HCL 80 MG TABLET PO SCH (06:46)
[2025-05-17 07:00] LABS: GLUCOMETER DEV NAME(LOC) 3E.C; GLUCOSE,POINT OF CARE 276 MG/DL (70-110)
[2025-05-17] MEDS: VALPROIC ACID 250 MG/5 ML SOLUTION UDCUP PO SCH (08:19)
[2025-05-17 11:41] LABS: GLUCOMETER DEV NAME(LOC) 3E.C; GLUCOSE,POINT OF CARE 164 MG/DL (70-110)
[2025-05-17 13:02] VITALS: BP 139/73; PULSE 62; RESP 18; TEMP 97.8; O2SAT 97
[2025-05-17 14:05] VITALS: BP 145/78; PULSE 69; RESP 18; O2SAT 98
[2025-05-17 16:07] VITALS: BP 140/67; PULSE 65; RESP 18; O2SAT 99
[2025-05-17 17:21] LABS: GLUCOMETER DEV NAME(LOC) 3E.C; GLUCOSE,POINT OF CARE 226 MG/DL (70-110)
[2025-05-17 21:35] LABS: GLUCOMETER DEV NAME(LOC) 3E.C; GLUCOSE,POINT OF CARE 216 MG/DL (70-110)
[2025-05-17 21:49] VITALS: RESP 18
[2025-05-18 06:45] LABS: GLUCOMETER DEV NAME(LOC) 3E.C; GLUCOSE,POINT OF CARE 230 MG/DL (70-110)
[2025-05-18 09:29] VITALS: BP 124/83; PULSE 64; RESP 18; TEMP 98; O2SAT 98
[2025-05-18 11:35] LABS: GLUCOMETER DEV NAME(LOC) 3E.C; GLUCOSE,POINT OF CARE 298 MG/DL (70-110)
[2025-05-18 17:10] VITALS: RESP 18
[2025-05-18 17:36] LABS: GLUCOMETER DEV NAME(LOC) 3E.C; GLUCOSE,POINT OF CARE 321 MG/DL (70-110)
[2025-05-18 18:14] VITALS: RESP 16
[2025-05-18 20:00] VITALS: BP 111/66; PULSE 65; RESP 18; TEMP 97.6; O2SAT 99
[2025-05-18 21:30] LABS: GLUCOMETER DEV NAME(LOC) 3E.C; GLUCOSE,POINT OF CARE 252 MG/DL (70-110)
[2025-05-18 23:45] VITALS: BP 122/78; PULSE 70; RESP 18; TEMP 98; O2SAT 97
[2025-05-19] VITALS (7 sets, daily range): BP systolic 118–156; BP diastolic 64–75; PULSE 52–88; RESP 18–20; TEMP 97.8–98.6; O2SAT 96–98
[2025-05-19 06:58] LABS: CALCIUM, TOTAL 8.3 mg/dL (8.8-10.5); CREATININE 1.93 mg/dL (0.60-1.30); GLOMERULAR FILTR. RATE CALC 36.0 mL/min (>60); GLUCOSE,RANDOM 253.0 mg/dL (70-110); SODIUM SERUM 140.0 mmol/L (136-145); UREA NITROGEN, BLOOD 68.0 mg/dL (7-18)
[2025-05-19 07:20] LABS: GLUCOMETER DEV NAME(LOC) 3E.C; GLUCOSE,POINT OF CARE 257 MG/DL (70-110)
[2025-05-19 11:50] LABS: GLUCOMETER DEV NAME(LOC) 3E.C; GLUCOSE,POINT OF CARE 222 MG/DL (70-110)
[2025-05-19 16:51] LABS: GLUCOMETER DEV NAME(LOC) 3E.C; GLUCOSE,POINT OF CARE 226 MG/DL (70-110)
[2025-05-19 21:50] LABS: GLUCOMETER DEV NAME(LOC) 3E.C; GLUCOSE,POINT OF CARE 233 MG/DL (70-110)
[2025-05-20] VITALS (7 sets, daily range): BP systolic 115–166; BP diastolic 57–91; PULSE 57–98; RESP 18–20; TEMP 97.6–98; O2SAT 97–100
[2025-05-20] MEDS: LURASIDONE HCL 60 MG TABLET PO SCH (06:45)
[2025-05-20 07:11] LABS: GLUCOMETER DEV NAME(LOC) 3E.C; GLUCOSE,POINT OF CARE 264 MG/DL (70-110)
[2025-05-20] MEDS: ATOMOXETINE HCL 25 MG CAPSULE PO SCH (10:17)
[2025-05-20 11:51] LABS: GLUCOMETER DEV NAME(LOC) 3E.C; GLUCOSE,POINT OF CARE 299 MG/DL (70-110)
[2025-05-20 16:30] LABS: GLUCOMETER DEV NAME(LOC) 3E.C; GLUCOSE,POINT OF CARE 256 MG/DL (70-110)
[2025-05-20 21:31] LABS: GLUCOMETER DEV NAME(LOC) 3E.C; GLUCOSE,POINT OF CARE 215 MG/DL (70-110)
[2025-05-21] VITALS (8 sets, daily range): BP systolic 130–140; BP diastolic 71–77; PULSE 58–75; RESP 18–20; TEMP 97–98.5; O2SAT 97–98
[2025-05-21 06:56] LABS: GLUCOMETER DEV NAME(LOC) 3E.C; GLUCOSE,POINT OF CARE 189 MG/DL (70-110)
[2025-05-21] MEDS: MULTIVITAMINS WITH MINERALS, THERAPEUTIC TABLET PO SCH (08:18)
[2025-05-21] MEDS: ATOMOXETINE HCL 40 MG CAPSULE PO SCH (08:19)
[2025-05-21 12:00] LABS: GLUCOMETER DEV NAME(LOC) 3E.C; GLUCOSE,POINT OF CARE 270 MG/DL (70-110)
[2025-05-21] MEDS: TUBERCULIN, PURIFIED PROTEIN DERIVATIVE 5 TU/0.1 ML SYRINGE ID ONE (12:05)
[2025-05-21 17:36] LABS: GLUCOMETER DEV NAME(LOC) 3E.C; GLUCOSE,POINT OF CARE 189 MG/DL (70-110)
[2025-05-21 21:06] LABS: GLUCOMETER DEV NAME(LOC) 3E.C; GLUCOSE,POINT OF CARE 303 MG/DL (70-110)
[2025-05-22 03:50] VITALS: BP 129/68; PULSE 71; RESP 19; TEMP 98.2; O2SAT 97
[2025-05-22 04:52] VITALS: RESP 18
[2025-05-22 06:30] LABS: GLUCOMETER DEV NAME(LOC) 3E.C; GLUCOSE,POINT OF CARE 339 MG/DL (70-110)
[2025-05-22] MEDS: ATOMOXETINE HCL 60 MG CAPSULE PO SCH (08:01)
[2025-05-22 08:53] VITALS: BP 133/73; PULSE 64; RESP 18; TEMP 97.8; O2SAT 98
[2025-05-22 09:55] VITALS: BP 133/73; PULSE 64; RESP 18; O2SAT 98
[2025-05-22 11:35] LABS: GLUCOMETER DEV NAME(LOC) 3E.C; GLUCOSE,POINT OF CARE 301 MG/DL (70-110)
[2025-05-22 13:35] LABS: CALCIUM, TOTAL 8.3 mg/dL (8.8-10.5); CREATININE 1.96 mg/dL (0.60-1.30); GLOMERULAR FILTR. RATE CALC 36.0 mL/min (>60); GLUCOSE,RANDOM 289.0 mg/dL (70-110); SODIUM SERUM 130.0 mmol/L (136-145); UREA NITROGEN, BLOOD 72.0 mg/dL (7-18)
[2025-05-22 16:21] VITALS: BP 133/73; PULSE 83; RESP 18; TEMP 98.1; O2SAT 98
[2025-05-22 16:56] LABS: GLUCOMETER DEV NAME(LOC) 3E.C; GLUCOSE,POINT OF CARE 323 MG/DL (70-110)
[2025-05-22 22:00] LABS: GLUCOMETER DEV NAME(LOC) 3E.C; GLUCOSE,POINT OF CARE 241 MG/DL (70-110)
[2025-05-22 22:34] VITALS: BP 135/97; RESP 18; O2SAT 98
[2025-05-23 06:40] LABS: GLUCOMETER DEV NAME(LOC) 3E.C; GLUCOSE,POINT OF CARE 330 MG/DL (70-110)
[2025-05-23] MEDS: ATOMOXETINE HCL 40 MG CAPSULE PO SCH (09:42)
[2025-05-23 12:05] LABS: GLUCOMETER DEV NAME(LOC) 3E.C; GLUCOSE,POINT OF CARE 220 MG/DL (70-110)
[2025-05-23 12:13] VITALS: RESP 18; TEMP 98
[2025-05-23 13:13] VITALS: RESP 17
[2025-05-23 16:59] VITALS: BP 129/79; PULSE 65; RESP 18; TEMP 97.9; O2SAT 97
[2025-05-23 17:50] LABS: GLUCOMETER DEV NAME(LOC) 3E.C; GLUCOSE,POINT OF CARE 372 MG/DL (70-110)
[2025-05-23 18:15] VITALS: RESP 18
[2025-05-23 19:15] VITALS: RESP 17; TEMP 98
[2025-05-23 20:36] LABS: GLUCOMETER DEV NAME(LOC) 3E.C; GLUCOSE,POINT OF CARE 265 MG/DL (70-110)
[2025-05-23 23:21] VITALS: RESP 18
[2025-05-24 00:20] VITALS: BP 123/82; PULSE 71; RESP 17; TEMP 97.7; O2SAT 97
[2025-05-24 01:23] VITALS: RESP 18
[2025-05-24 06:40] VITALS: BP 120/80; PULSE 68; RESP 19; TEMP 98.1; O2SAT 98
[2025-05-24 06:41] LABS: GLUCOMETER DEV NAME(LOC) 3E.C; GLUCOSE,POINT OF CARE 201 MG/DL (70-110)
[2025-05-24 10:13] VITALS: BP 132/62; PULSE 65; RESP 18; TEMP 97.8; O2SAT 97
[2025-05-24 12:05] LABS: GLUCOMETER DEV NAME(LOC) 3E.C; GLUCOSE,POINT OF CARE 227 MG/DL (70-110)
[2025-05-24 12:45] VITALS: BP 140/67; PULSE 78; RESP 18; TEMP 97.6; O2SAT 98
[2025-05-24 17:21] LABS: GLUCOMETER DEV NAME(LOC) 3E.C; GLUCOSE,POINT OF CARE 307 MG/DL (70-110)
[2025-05-24 21:22] VITALS: BP 121/64; PULSE 66; RESP 18; TEMP 97.9; O2SAT 98
[2025-05-24 21:26] LABS: GLUCOMETER DEV NAME(LOC) 3E.C; GLUCOSE,POINT OF CARE 229 MG/DL (70-110)
[2025-05-25] VITALS (8 sets, daily range): BP systolic 119–129; BP diastolic 64–73; PULSE 69–75; RESP 16–19; TEMP 97.3–98.1; O2SAT 97–99
[2025-05-25 06:40] LABS: GLUCOMETER DEV NAME(LOC) 3E.C; GLUCOSE,POINT OF CARE 268 MG/DL (70-110)
[2025-05-25 12:15] LABS: GLUCOMETER DEV NAME(LOC) 3E.C; GLUCOSE,POINT OF CARE 271 MG/DL (70-110)
[2025-05-25 17:36] LABS: GLUCOMETER DEV NAME(LOC) 3E.C; GLUCOSE,POINT OF CARE 327 MG/DL (70-110)
[2025-05-25 20:36] LABS: GLUCOMETER DEV NAME(LOC) 3E.C; GLUCOSE,POINT OF CARE 323 MG/DL (70-110)
[2025-05-26] VITALS (7 sets, daily range): BP systolic 122–152; BP diastolic 73–81; PULSE 65–67; RESP 16–18; TEMP 97.7–97.8; O2SAT 97–98
[2025-05-26 07:10] LABS: GLUCOMETER DEV NAME(LOC) 3E.C; GLUCOSE,POINT OF CARE 269 MG/DL (70-110)
[2025-05-26 12:21] LABS: GLUCOMETER DEV NAME(LOC) 3E.C; GLUCOSE,POINT OF CARE 245 MG/DL (70-110)
[2025-05-26 17:31] LABS: GLUCOMETER DEV NAME(LOC) 3E.C; GLUCOSE,POINT OF CARE 358 MG/DL (70-110)
[2025-05-26 20:36] LABS: GLUCOMETER DEV NAME(LOC) 3E.C; GLUCOSE,POINT OF CARE 310 MG/DL (70-110)
[2025-05-27] VITALS (7 sets, daily range): BP systolic 118–155; BP diastolic 78–85; PULSE 68–78; RESP 17–19; TEMP 97.6–98.7; O2SAT 97–98
[2025-05-27 06:46] LABS: GLUCOMETER DEV NAME(LOC) 3E.C; GLUCOSE,POINT OF CARE 325 MG/DL (70-110)
[2025-05-27] MEDS: ATOMOXETINE HCL 25 MG CAPSULE PO SCH (09:03)
[2025-05-27 11:36] LABS: GLUCOMETER DEV NAME(LOC) 3E.C; GLUCOSE,POINT OF CARE 235 MG/DL (70-110)
[2025-05-27 17:26] LABS: GLUCOMETER DEV NAME(LOC) 3E.C; GLUCOSE,POINT OF CARE 270 MG/DL (70-110)
[2025-05-27 20:51] LABS: GLUCOMETER DEV NAME(LOC) 3E.C; GLUCOSE,POINT OF CARE 266 MG/DL (70-110)
[2025-05-28 04:00] VITALS: BP 140/82; PULSE 80; RESP 17; TEMP 97.9; O2SAT 99
[2025-05-28 05:07] VITALS: RESP 18
[2025-05-28 06:51] LABS: GLUCOMETER DEV NAME(LOC) 3E.C; GLUCOSE,POINT OF CARE 320 MG/DL (70-110)
[2025-05-28 10:26] VITALS: BP 164/88; PULSE 66; RESP 18; TEMP 97.7; O2SAT 99
[2025-05-28 11:33] VITALS: RESP 19
[2025-05-28 11:51] LABS: GLUCOMETER DEV NAME(LOC) 3E.C; GLUCOSE,POINT OF CARE 176 MG/DL (70-110)
[2025-05-28 18:50] LABS: GLUCOMETER DEV NAME(LOC) 3E.C; GLUCOSE,POINT OF CARE 235 MG/DL (70-110)
[2025-05-28 20:09] VITALS: RESP 18
[2025-05-28 21:04] VITALS: BP 142/69; PULSE 64; RESP 18; TEMP 98.1; O2SAT 98
[2025-05-28 22:01] LABS: GLUCOMETER DEV NAME(LOC) 3E.C; GLUCOSE,POINT OF CARE 337 MG/DL (70-110)
[2025-05-29] VITALS (8 sets, daily range): BP systolic 143–177; BP diastolic 66–75; PULSE 65–71; RESP 18–19; TEMP 97.7–98.1; O2SAT 66–98
[2025-05-29 07:21] LABS: GLUCOMETER DEV NAME(LOC) 3E.C; GLUCOSE,POINT OF CARE 330 MG/DL (70-110)
[2025-05-29 08:56] LABS: GLUCOMETER DEV NAME(LOC) 3E.C; GLUCOSE,POINT OF CARE 301 MG/DL (70-110)
[2025-05-29 12:11] LABS: GLUCOMETER DEV NAME(LOC) 3E.C; GLUCOSE,POINT OF CARE 259 MG/DL (70-110)
[2025-05-29 16:25] LABS: GLUCOMETER DEV NAME(LOC) 3E.C; GLUCOSE,POINT OF CARE 223 MG/DL (70-110)
[2025-05-29] MEDS: INSULIN GLARGINE,HUM.REC.ANLOG 100 UNITS/ML SQ SCH (21:00)
[2025-05-29 21:36] LABS: GLUCOMETER DEV NAME(LOC) 3E.C; GLUCOSE,POINT OF CARE 213 MG/DL (70-110)
[2025-05-30 02:12] VITALS: BP 150/71; RESP 18; O2SAT 99
[2025-05-30 07:11] LABS: GLUCOMETER DEV NAME(LOC) 3E.C; GLUCOSE,POINT OF CARE 210 MG/DL (70-110)
[2025-05-30 09:00] VITALS: BP 161/81; PULSE 62; RESP 18; TEMP 97.7; O2SAT 99
[2025-05-30 11:50] LABS: GLUCOMETER DEV NAME(LOC) 3E.C; GLUCOSE,POINT OF CARE 248 MG/DL (70-110)
[2025-05-30 12:50] VITALS: BP 146/74; PULSE 74; RESP 18; TEMP 98; O2SAT 98
[2025-05-30 17:15] LABS: GLUCOMETER DEV NAME(LOC) 3E.C; GLUCOSE,POINT OF CARE 230 MG/DL (70-110)
[2025-05-30 19:55] VITALS: BP 135/76; PULSE 74; RESP 18; TEMP 97.9
[2025-05-30 20:26] LABS: GLUCOMETER DEV NAME(LOC) 3E.C; GLUCOSE,POINT OF CARE 226 MG/DL (70-110)
[2025-05-30] MEDS: DIVALPROEX SODIUM 250 MG ER TABLET PO SCH (21:08)
[2025-05-31 03:02] VITALS: BP 137/80; PULSE 79; RESP 18; TEMP 97.7
[2025-05-31 05:46] LABS: GLUCOMETER DEV NAME(LOC) 3E.C; GLUCOSE,POINT OF CARE 227 MG/DL (70-110)
[2025-05-31] MEDS: LURASIDONE HCL 80 MG TABLET PO SCH (06:41)
[2025-05-31] MEDS: VALPROIC ACID 250 MG/5 ML SOLUTION UDCUP PO SCH (08:04)
[2025-05-31 09:38] VITALS: BP 111/61; PULSE 62; RESP 18; TEMP 98; O2SAT 98
[2025-05-31 12:16] LABS: GLUCOMETER DEV NAME(LOC) 3E.C; GLUCOSE,POINT OF CARE 248 MG/DL (70-110)
[2025-05-31 12:29] VITALS: BP 120/64; PULSE 78; RESP 18; TEMP 98.3; O2SAT 98
[2025-05-31 17:10] LABS: GLUCOMETER DEV NAME(LOC) 3E.C; GLUCOSE,POINT OF CARE 220 MG/DL (70-110)
[2025-05-31 18:34] VITALS: BP 113/64; PULSE 74; RESP 19; TEMP 97.1; O2SAT 98
[2025-05-31 19:34] VITALS: RESP 18
[2025-05-31 20:35] LABS: GLUCOMETER DEV NAME(LOC) 3E.C; GLUCOSE,POINT OF CARE 268 MG/DL (70-110)
[2025-05-31 21:18] VITALS: BP 134/86; PULSE 69; RESP 18; TEMP 97.6; O2SAT 96
[2025-06-01 00:35] VITALS: BP 129/82; PULSE 73; RESP 19; TEMP 98; O2SAT 98
[2025-06-01 01:41] VITALS: RESP 18
[2025-06-01 06:45] LABS: GLUCOMETER DEV NAME(LOC) 3E.C; GLUCOSE,POINT OF CARE 216 MG/DL (70-110)
[2025-06-01 10:19] VITALS: BP 150/92; PULSE 79; RESP 18; TEMP 97.8; O2SAT 97
[2025-06-01 12:20] LABS: GLUCOMETER DEV NAME(LOC) 3E.C; GLUCOSE,POINT OF CARE 215 MG/DL (70-110)
[2025-06-01 13:09] LABS: CALCIUM, TOTAL 8.6 mg/dL (8.8-10.5); CREATININE 2.1 mg/dL (0.60-1.30); GLOMERULAR FILTR. RATE CALC 33.0 mL/min (>60); GLUCOSE,RANDOM 232.0 mg/dL (70-110); SODIUM SERUM 133.0 mmol/L (136-145); UREA NITROGEN, BLOOD 79.0 mg/dL (7-18)
[2025-06-01 16:50] VITALS: BP 143/78; PULSE 79; RESP 18; TEMP 98.2; O2SAT 98
[2025-06-01 17:26] LABS: GLUCOMETER DEV NAME(LOC) 3E.C; GLUCOSE,POINT OF CARE 234 MG/DL (70-110)
[2025-06-01 20:05] LABS: GLUCOMETER DEV NAME(LOC) 3E.C; GLUCOSE,POINT OF CARE 299 MG/DL (70-110)
[2025-06-01 21:04] VITALS: RESP 18
[2025-06-02] VITALS (9 sets, daily range): BP systolic 134–157; BP diastolic 74–83; PULSE 64–78; RESP 18–19; TEMP 97.7–98.4; O2SAT 96–99
[2025-06-02 06:35] LABS: GLUCOMETER DEV NAME(LOC) 3E.C; GLUCOSE,POINT OF CARE 190 MG/DL (70-110)
[2025-06-02 12:21] LABS: GLUCOMETER DEV NAME(LOC) 3E.C; GLUCOSE,POINT OF CARE 297 MG/DL (70-110)
[2025-06-02 17:30] LABS: GLUCOMETER DEV NAME(LOC) 3E.C; GLUCOSE,POINT OF CARE 222 MG/DL (70-110)
[2025-06-02] MEDS ORDERED: ATOM25CA8 PO (17:50)
[2025-06-02] MEDS ORDERED: DIVA-85 PO (17:50)
[2025-06-02] MEDS ORDERED: LURA80TA2 PO (17:50)
[2025-06-02] MEDS ORDERED: PARO-37 PO (17:50)
[2025-06-02] MEDS ORDERED: TRAZ-257 PO (17:50)
[2025-06-02] MEDS ORDERED: PREG50 PO (17:50)
[2025-06-02] MEDS ORDERED: VALP250S23 PO (17:50)
[2025-06-03 05:45] LABS: GLUCOMETER DEV NAME(LOC) 3E.C; GLUCOSE,POINT OF CARE 246 MG/DL (70-110)
[2025-06-03 06:34] VITALS: BP 135/63; PULSE 74; RESP 18; TEMP 97.7
[2025-06-03 07:05] LABS: GLUCOMETER DEV NAME(LOC) 3E.C; GLUCOSE,POINT OF CARE 204 MG/DL (70-110)
[2025-06-03 07:34] VITALS: BP 141/71; PULSE 71; RESP 18; TEMP 97.7
[2025-06-03 08:15] VITALS: BP 141/71; PULSE 71; RESP 18; TEMP 97.7
[2025-06-03 08:36] VITALS: BP 141/71; PULSE 71; RESP 18; TEMP 97.7; O2SAT 97
[2025-06-03 12:53] VITALS: BP 138/79; PULSE 79; RESP 18; TEMP 98; O2SAT 97
[2025-06-03 13:53] VITALS: BP 131/80; PULSE 76; RESP 17; TEMP 98.1
[2025-06-03 16:35] LABS: GLUCOMETER DEV NAME(LOC) 3E.C; GLUCOSE,POINT OF CARE 215 MG/DL (70-110)
[2025-06-03 16:36] LABS: GLUCOMETER DEV NAME(LOC) 3E.C; GLUCOSE,POINT OF CARE 181 MG/DL (70-110)
[2025-06-04] MEDS ORDERED: TRAM50TA5 PO (16:29)
== END 2025-06-03 17:41 | disposition home health service (06) | DRG 885 ==
LOC: 3EC 04-26 16:14
PROVIDERS: ADMIT Psychiatry & Neurology Psychiatry; ATTEND Psychiatry & Neurology Psychiatry
PROC: GZ56ZZZ Individual Psychotherapy, Supportive (ICD-10-PCS; 2025-04-28)
PROC: GZHZZZZ Group Psychotherapy (ICD-10-PCS; principal; 2025-06-03)
PROC: GZ51ZZZ Individual Psychotherapy, Behavioral (ICD-10-PCS; 2025-06-03)
DX: F25.0 Schizoaffective disorder, bipolar type (principal); N18.30 Chronic kidney disease, stage 3 unspecified; Z93.3 Colostomy status; E11.22 Type 2 diabetes mellitus with diabetic chronic kidney disease; E78.5 Hyperlipidemia, unspecified; F41.9 Anxiety disorder, unspecified; G40.909 Epilepsy, unspecified, not intractable, without status epilepticus; G47.00 Insomnia, unspecified; K21.9 Gastro-esophageal reflux disease without esophagitis; I12.9 Hypertensive chronic kidney disease with stage 1 through stage 4 chronic kidney disease, or unspecified chronic kidney disease; E66.01 Morbid (severe) obesity due to excess calories; F91.9 Conduct disorder, unspecified; F60.9 Personality disorder, unspecified; I25.10 Atherosclerotic heart disease of native coronary artery without angina pectoris; N40.0 Benign prostatic hyperplasia without lower urinary tract symptoms; J44.9 Chronic obstructive pulmonary disease, unspecified; K43.5 Parastomal hernia without obstruction or gangrene; F90.9 Attention-deficit hyperactivity disorder, unspecified type; K59.00 Constipation, unspecified; Z68.29 Body mass index [BMI] 29.0-29.9, adult; Z89.511 Acquired absence of right leg below knee; Z89.512 Acquired absence of left leg below knee; Z95.5 Presence of coronary angioplasty implant and graft; Z99.3 Dependence on wheelchair; Z79.899 Other long term (current) drug therapy; Z91.148 Patient's other noncompliance with medication regimen for other reason; Z87.891 Personal history of nicotine dependence
CPT/HCPCS: 74176; 80048; 80053; 80061; 80164; 82962; 83036; 83735; 84100; 84439; 84443; 87070; 87081; 87186; 87205; 97110; 97162; 97167; 97530; 97535; J1200; J1630; J1815; J2060; J3230

== ENCOUNTER 2025-07-24 19:51 | Inpatient (IN) | payer MEDICARE, MEDICAID ==
[~2025-07-24] VITALS: Ht 127 cm; Wt 104.3 kg
[~2025-07-24 19:51] MED LIST changes: +ATOM25CA8 PO; -BUSP5TAB20 PO; -DESV50TA35 PO; -DIVA-112 PO; +DIVA-85 PO; -INSU100I26 SQ; +LURA80TA2 PO; -OLAN5TAB52 PO; +PANT-31 PO; +PARO-37 PO; +PREG50 PO; -TAMS0.4C94 PO; +TRAM50TA5 PO; +TRAZ-257 PO; +VALP250S23 PO
[2025-07-24 20:52] LABS: PLATELET COUNT (AUTO) 282 K/uL (150-450); RED BLOOD CELL COUNT(AUTO) 4.39 MIL/uL (4.50-5.90); RED CELL DISTRIBUTION WIDTH 13.3 % (11.5-14.5); WHITE BLOOD COUNT (AUTO) 11.4 K/uL (4.5-11.0)
[2025-07-24] MEDS: OxyCODONE HCL 5 MG IR TABLET PO ONE (20:53)
[2025-07-24 21:01] LABS: CALCIUM, TOTAL 8.8 mg/dL (8.8-10.5); CREATININE 1.9 mg/dL (0.60-1.30); GLOMERULAR FILTR. RATE CALC 37.0 mL/min (>60); GLUCOSE,RANDOM 142.0 mg/dL (70-110); SODIUM SERUM 131.0 mmol/L (136-145); UREA NITROGEN, BLOOD 34.0 mg/dL (7-18)
[2025-07-24] MEDS ORDERED: LOPERAMIDE HCL 2 MG CAPSULE PO PRN (22:15)
[2025-07-24] MEDS ORDERED: LURASIDONE HCL 20 MG TABLET PO PRN (22:15)
[2025-07-24] MEDS ORDERED: GuaiFENesin/D-METHORPHAN [SUGAR-FREE] 200-20MG/10 ML SYRUP UDCUP PO PRN (22:15)
[2025-07-24] MEDS ORDERED: ACETAMINOPHEN 325 MG TABLET PO PRN (22:15)
[2025-07-24] MEDS ORDERED: MELATONIN 5 MG TABLET PO PRN (22:15)
[2025-07-24] MEDS ORDERED: MAG HYDROX/ALUMINUM HYD/SIMETH ES 30 ML SUSPENSION UDCUP PO PRN (22:15)
[2025-07-24] MEDS ORDERED: PROMETHAZINE HCL 25 MG TABLET PO PRN (22:15)
[2025-07-24 22:33] LABS: PH,URINE DRUG SCREEN 7.0 (5.0-8.0)
[2025-07-24 22:43] LABS: ALCOHOL, URINE DRUG SCREEN NEGATIVE (NEGATIVE); AMPHET/METH SCREEN,URINE NEGATIVE (NEGATIVE); BARBITURATE SCREEN, URINE NEGATIVE (NEGATIVE); CANNABINOID SCREEN,URINE POSITIVE (NEGATIVE); COCAINE SCREEN,URINE NEGATIVE (NEGATIVE); METHADONE SCREEN, URINE NEGATIVE (NEGATIVE)
[2025-07-24] MEDS ORDERED: ATOM40CA9 PO (23:02)
[2025-07-24] MEDS ORDERED: AMLO-257 PO (23:02)
[2025-07-24] MEDS ORDERED: CLON0.1T2 PO (23:02)
[2025-07-24] MEDS ORDERED: ARIP15TA27 PO (23:02)
[2025-07-24] MEDS ORDERED: DIVA-112 PO (23:02)
[2025-07-24] MEDS ORDERED: DAPA5TAB PO (23:02)
[2025-07-24 23:23] LABS: COVID AG,FIA SOURCE NASAL SWAB
[2025-07-24] MEDS ORDERED: OXYC10TA59 PO (23:24)
[2025-07-24] MEDS ORDERED: NICO-803 TD (23:24)
[2025-07-24] MEDS ORDERED: OXYC5 PO (23:24)
[2025-07-24] MEDS ORDERED: PREG50 PO (23:24)
[2025-07-24] MEDS ORDERED: PARO-38 PO (23:24)
[2025-07-24 23:41] LABS: SARS-COV2 (COVID) ANTIGEN,FIA Negative (Negative)
[2025-07-25 03:05] VITALS: BP 168/86; PULSE 84; RESP 18; TEMP 97.9; O2SAT 98
[2025-07-25 04:53] LABS: APPEARANCE,URINE CLEAR (CLEAR); GLUCOSE, URINE (UA) >=1000 mg/dL (NEGATIVE); LEUKOCYTE ESTERASE ,URINE NEGATIVE (NEGATIVE); NITRATE,URINE NEGATIVE (NEGATIVE); OCCULT BLOOD,URINE NEGATIVE (NEGATIVE); SPECIFIC GRAVITIY, URINE 1.013 (1.003-1.030)
[2025-07-25 05:00] LABS: SQUAMOUS EPITHELIAL CELL,UR Few /LPF (None Seen)
[2025-07-25] MEDS ORDERED: ALBUTEROL SULFATE HFA 90 MCG/PUFF 8 GM INHALER IH PRN (06:30)
[2025-07-25] MEDS ORDERED: DEXTROSE 50%-WATER 25 GM/50 ML SYRINGE IVP PRN (06:30)
[2025-07-25] MEDS ORDERED: BACITRACIN 28 GM OINTMENT TP PRN (06:30)
[2025-07-25] MEDS ORDERED: MAG HYDROX/ALUMINUM HYD/SIMETH ES 30 ML SUSPENSION UDCUP PO PRN (06:30)
[2025-07-25] MEDS ORDERED: MAGNESIUM HYDROXIDE SUSPENSION 30 ML UDCUP PO PRN (06:30)
[2025-07-25] MEDS ORDERED: DOCUSATE SODIUM 100 MG CAPSULE PO PRN (06:30)
[2025-07-25] MEDS ORDERED: ACETAMINOPHEN 325 MG TABLET PO PRN (06:30)
[2025-07-25] MEDS ORDERED: OMEPRAZOLE 20 MG CAPSULE PO PRN (06:30)
[2025-07-25] MEDS ORDERED: BENZOCAINE/MENTHOL [CEPACOL] LOZENGE PO PRN (06:30)
[2025-07-25] MEDS ORDERED: ONDANSETRON 4 MG TABLET PO PRN (06:30)
[2025-07-25] MEDS ORDERED: PETROLATUM,WHITE 28 GM JELLY TP PRN (06:30)
[2025-07-25] MEDS ORDERED: LOPERAMIDE HCL 2 MG CAPSULE PO PRN (06:30)
[2025-07-25] MEDS: INSULIN LISPRO 100 UNITS/ML SQ PRN (06:52)
[2025-07-25 06:56] LABS: GLUCOMETER DEV NAME(LOC) 3E.C; GLUCOSE,POINT OF CARE 170 MG/DL (70-110)
[2025-07-25 08:10] LABS: CHOL/HDL RATIO 4.5 (4.2-7.3); LDL CHOL (CALC.) 108.0 mg/dL (0-130)
[2025-07-25] MEDS: PREGABALIN 25 MG CAPSULE PO SCH (09:25)
[2025-07-25] MEDS: FOLIC ACID 1 MG TABLET PO SCH (09:25)
[2025-07-25] MEDS: MULTIVITAMINS WITH MINERALS, THERAPEUTIC TABLET PO SCH (09:25)
[2025-07-25] MEDS: THIAMINE 100 MG TABLET PO SCH (09:25)
[2025-07-25] MEDS: ATOMOXETINE HCL 40 MG CAPSULE PO SCH (09:25)
[2025-07-25] MEDS: ACAMPROSATE CALCIUM 333 MG DR TABLET PO SCH (09:25)
[2025-07-25] MEDS: VALPROIC ACID 250 MG/5 ML SOLUTION UDCUP PO SCH ×2 (09:26→21:00)
[2025-07-25] MEDS: NICOTINE 21 MG/24 HOUR PATCH TD SCH (16:30)
[2025-07-25] MEDS: LURASIDONE HCL 40 MG TABLET PO SCH (17:30)
[2025-07-25 18:43] VITALS: RESP 18
[2025-07-25 20:23] VITALS: RESP 18
[2025-07-25] MEDS ORDERED: TraZODone HCL 150 MG TABLET PO PRN (21:00)
[2025-07-25] MEDS ORDERED: TraZODone HCL 150 MG TABLET PO SCH (21:00)
[2025-07-25 22:36] VITALS: BP 142/79; PULSE 85; RESP 18; TEMP 97.8
[2025-07-25 23:36] VITALS: RESP 18
[2025-07-26] MEDS: ZOLPIDEM TARTRATE 10 MG TABLET PO PRN (01:03)
[2025-07-26 08:44] VITALS: BP 146/95; PULSE 98; RESP 20; TEMP 96.8; O2SAT 97
[2025-07-26] MEDS: PREGABALIN 50 MG CAPSULE PO SCH (09:00)
[2025-07-26] MEDS: ETHYL ALCOHOL 62% ANTISEPTIC NASAL SANITIZER 0.6 ML AMPUL NASAL SCH (09:00)
[2025-07-26] MEDS: ATOMOXETINE HCL 60 MG CAPSULE PO SCH (11:05)
[2025-07-26 11:08] VITALS: BP 145/89; PULSE 97; RESP 18; O2SAT 98
[2025-07-26 11:41] LABS: GLUCOMETER DEV NAME(LOC) 3E.C; GLUCOSE,POINT OF CARE 217 MG/DL (70-110)
[2025-07-26 20:50] VITALS: BP 109/71; PULSE 96; RESP 18; TEMP 98; O2SAT 99
[2025-07-26 20:53] VITALS: BP 109/71; PULSE 96; RESP 18; TEMP 98; O2SAT 99
[2025-07-26 21:53] VITALS: RESP 18
[2025-07-27] VITALS (13 sets, daily range): BP systolic 112–136; BP diastolic 69–90; PULSE 72–100; RESP 17–20; TEMP 97.5–98.1; O2SAT 96–98
[2025-07-27] MEDS: IBUPROFEN 600 MG TABLET PO PRN (04:43)
[2025-07-27 11:30] LABS: GLUCOMETER DEV NAME(LOC) 3E.C; GLUCOSE,POINT OF CARE 184 MG/DL (70-110)
[2025-07-27 17:40] LABS: GLUCOMETER DEV NAME(LOC) 3E.C; GLUCOSE,POINT OF CARE 216 MG/DL (70-110)
[2025-07-28 00:53] VITALS: RESP 18
[2025-07-28 06:56] LABS: GLUCOMETER DEV NAME(LOC) 3E.C; GLUCOSE,POINT OF CARE 310 MG/DL (70-110)
[2025-07-28 08:36] VITALS: BP 115/67; PULSE 102; RESP 18; TEMP 97.9
[2025-07-28 11:32] LABS: GLUCOMETER DEV NAME(LOC) 3E.C; GLUCOSE,POINT OF CARE 256 MG/DL (70-110)
[2025-07-28] MEDS: PREGABALIN 50 MG CAPSULE PO SCH (13:17)
[2025-07-28 13:20] VITALS: BP 123/78; PULSE 78; RESP 17; TEMP 97
[2025-07-28 14:20] VITALS: BP 136/79; PULSE 76; RESP 18; TEMP 97.6
[2025-07-28] MEDS ORDERED: LURA40TA2 PO (15:24)
[2025-07-28] MEDS ORDERED: MELA5TAB40 PO (15:24)
[2025-07-28] MEDS ORDERED: VALP250S23 PO (15:24)
[2025-07-28] MEDS ORDERED: TRAZ-283 PO (15:24)
[2025-07-28] MEDS: LURASIDONE HCL 40 MG TABLET PO SCH (17:01)
[2025-07-28 17:11] LABS: GLUCOMETER DEV NAME(LOC) 3E.C; GLUCOSE,POINT OF CARE 218 MG/DL (70-110)
[2025-07-29] MEDS ORDERED: ATOMOXETINE HCL 25 MG CAPSULE PO SCH (09:00)
[2025-07-29] MEDS ORDERED: PIOGLITAZONE HCL 15 MG TABLET PO SCH (09:00)
[2025-07-30] MEDS ORDERED: PIOG15TA6 PO (10:15)
== END 2025-07-28 17:15 | disposition home or self-care (01) | DRG 885 ==
LOC: EMS 19:51 → 3EC 07-25 03:07
PROVIDERS: ADMIT Psychiatry & Neurology Psychiatry; ATTEND Psychiatry & Neurology Psychiatry
PROC: GZHZZZZ Group Psychotherapy (ICD-10-PCS; principal; 2025-07-25)
PROC: GZ58ZZZ Individual Psychotherapy, Cognitive-Behavioral (ICD-10-PCS; 2025-07-25)
PROC: GZ56ZZZ Individual Psychotherapy, Supportive (ICD-10-PCS; 2025-07-25)
DX: F25.9 Schizoaffective disorder, unspecified (principal); N19 Unspecified kidney failure; Z93.3 Colostomy status; E11.65 Type 2 diabetes mellitus with hyperglycemia; R45.851 Suicidal ideations; Z20.822 Contact with and (suspected) exposure to COVID-19; I10 Essential (primary) hypertension; F17.200 Nicotine dependence, unspecified, uncomplicated; D64.9 Anemia, unspecified; F31.9 Bipolar disorder, unspecified; I25.10 Atherosclerotic heart disease of native coronary artery without angina pectoris; E11.9 Type 2 diabetes mellitus without complications; F41.9 Anxiety disorder, unspecified; F90.9 Attention-deficit hyperactivity disorder, unspecified type; J44.9 Chronic obstructive pulmonary disease, unspecified; N40.0 Benign prostatic hyperplasia without lower urinary tract symptoms; Z63.9 Problem related to primary support group, unspecified; Z59.9 Problem related to housing and economic circumstances, unspecified; Z65.3 Problems related to other legal circumstances; Z55.9 Problems related to education and literacy, unspecified; Z91.041 Radiographic dye allergy status; Z89.511 Acquired absence of right leg below knee; Z89.512 Acquired absence of left leg below knee; Z91.148 Patient's other noncompliance with medication regimen for other reason; Z91.018 Allergy to other foods
CPT/HCPCS: 80048; 80061; 80307; 81001; 82962; 83036; 85025; 87081; 99285; G0480